=== PATIENT | male | born 1935 | race Caucasian/White ===

== ENCOUNTER → 2019-04-03 13:00 | Outpatient (CLI) | payer MEDICARE, MEDICAID, SELFPAY ==
--- NOTE | 2019-04-03 13:10 | XR_ITS ---
PROCEDURE: XR KNEE LT 3V CLINICAL INDICATION: distal fibula fx Pain COMPARISON: XR ANKLE LT MIN 3V from 02/09/2019 FINDINGS: No fracture or dislocation. No lytic or blastic change. There is normal mineralization. Moderate osteoarthritic changes are present at the medial compartment and patellofemoral joint with mild osteoarthritis of the lateral compartment. There is generalized vascular calcification. IMPRESSION: Osteoarthritis Dictated by: Dom Montelongo MD 04/03/2019 14:20 Electronically signed by Dom Montelongo MD in [place] 04/03/2019 14:20
--- NOTE | 2019-04-03 15:07 | XR_ITS ---
PROCEDURE: XR ANKLE LT MIN 3V CLINICAL INDICATION: Ankle Fx Pain and swelling following injury COMPARISON: No exams were available for comparison FINDINGS: No acute fracture or dislocation is evident. Hyperostosis is present involving the medial aspect of the distal tibia at the tibial fibular syndesmosis area. The ankle mortise is well preserved. Talar dome has an unremarkable appearance. IMPRESSION: Degenerative changes, no acute finding Dictated by: Dom Montelongo MD 04/03/2019 15:49 Electronically signed by Dom Montelongo MD in [place] 04/03/2019 15:49
--- NOTE | 2019-04-03 15:07 | XR_ITS ---
PROCEDURE: XR COCCYX 2V CLINICAL INDICATION: tailbone/ leg pain Posttraumatic pain COMPARISON: No exams were available for comparison FINDINGS: There is diffuse osteopenia. No coccyx or sacral fracture is apparent. There are mild osteoarthritic changes of the SI joints. There is mild dorsal angulation of the tip of the coccyx but no definite fracture. This could be developmental. No op set is evident. There is mild wedging of the superior endplate of L5 and L4 age indeterminate. IMPRESSION: 1. No definite sacral or coccyx fracture. 2. Mild wedging of the superior endplate of L4 and L5 age indeterminate. This may be better evaluated with MRI if clinically warranted Dictated by: Dom Montelongo MD 04/03/2019 15:48 Electronically signed by Dom Montelongo MD in [place] 04/03/2019 15:48
== END ==
PROVIDERS: PCP Emergency Medicine; Visit Provider Orthopaedic Surgery
DX: M19.072 Primary osteoarthritis, left ankle and foot; M53.3 Sacrococcygeal disorders, not elsewhere classified; M25.562 Pain in left knee
CPT/HCPCS: 72220; 73562; 73610

== ENCOUNTER → 2019-06-19 08:44 | Outpatient (CLI) | payer MEDICARE, MEDICAID, SELFPAY ==
--- NOTE | 2019-06-19 08:49 | CA_ITS ---
APPROVED REPORT EXAM: Comprehensive 2D, Doppler, and color-flow Echocardiogram Occup Therapist: Devi Aleman RT(R) Ht: 5 ft 11 in Wt: 202lbs BSA: 2.12 BP: 180/89 mmHg Indications: Aortic stenosis, murmur, SOB 2D Dimensions LVOT 1.84 cm (M/F) 1.5-2.5 M-Mode Dimensions RVDd 2.35 cm (0.9-2.6) LVDd 5.02 cm (3.5-5.7) LVDs 3.13 cm (3.5-5.7) IVSd 1.25 cm (0.6-1.1) PWd 1.03 cm (0.6-1.1) EF (Teich) 67.50% FS 37.60% EDV (Teich) 119.30 mL ESV (Teich) 38.80 mL LV Diastology E/A Ratio 0.81 Aortic Valve LVOT Max 177.00 (70-110 cm/s) LVOT VTI 46.36 cm Mitral Valve MV A Velocity 93.00 (40-130 cm/s) Left Ventricle Left atrium is mildly enlarged, left ventricle is normal size, mild concentric left ventricular hypertrophy, visually estimated ejection fraction of 55% with no regional wall motion abnormality, grade 1 diastolic dysfunction seen without tissue Doppler evidence of raise left atrial pressure. Right Ventricle Right atrium and right ventricular normal size and contractility. Aortic Valve Aortic valve is thickened and calcified, morphologically there is severe reduction in aortic valve leaflet mobility. There is no aortic insufficiency, the Doppler velocities are inadequate for calculation of the aortic valve area, a transesophageal echocardiogram is recommended for evaluation of the aortic valve disease and severity of aortic stenosis. Mitral Valve Mitral valve is minimally thickened, there is mild mitral calcification present, there is no mitral stenosis, there is mild mitral regurgitation. Tricuspid Valve Tricuspid valve is grossly normal, there is mild tricuspid regurgitation. Tricuspid regurgitation jet velocity is inadequate for calculation of the right ventricular systolic pressure. Pulmonic Valve Pulmonic valve is poorly visualized. Great Vessels Aortic root is normal size. Pericardium No significant pericardial effusion noted. Conclusion 1. Mildly enlarged left atrium, normal left ventricular size, mild concentric left ventricular hypertrophy, visually estimated ejection fraction 55% with no regional wall motion abnormality, grade 1 diastolic dysfunction seen without tissue Doppler evidence of raise left atrial pressure. 2. Thickened and calcified aortic valve morphologically there is moderate to severe aortic stenosis, however Doppler velocities are not adequately recorded, a transesophageal echocardiogram is recommended to assess the aortic valve disease and severity of the aortic stenosis. 3. Mild mitral and tricuspid regurgitation. 4. No significant pericardial effusion noted. Electronically signed by : Henry Rodriguez, 06/19/2019 13:14:09
== END ==
PROVIDERS: PCP Emergency Medicine; Visit Provider Emergency Medicine
DX: I35.0 Nonrheumatic aortic (valve) stenosis (principal)
CPT/HCPCS: 93306

== ENCOUNTER 2019-08-15 19:55 | Emergency (ER) | payer MEDICARE, MEDICAID, SELFPAY ==
[2019-08-15 19:56] VITALS: BP 124/89; PULSE 76; RESP 16; TEMP 36.8; O2SAT 97; BMI 22.4
[2019-08-15 19:58] VITALS: BMI 22.4
--- NOTE | 2019-08-15 19:59 | XR_ITS ---
PROCEDURE: XR WRIST LT MIN 3V CLINICAL INDICATION: fall Posttraumatic pain COMPARISON: XR WRIST RT 2V from 04/26/2019 FINDINGS: Mild osteoarthritic changes are present at the scapho trapezium and 1st metacarpal-carpal joint. There is a well-circumscribed calcific density at the radial styloid and may be due to an old fracture or ununited ossification center. No acute fracture or dislocation. IMPRESSION: Chronic degenerative changes, no acute finding Dictated by: Dom Montelongo MD 08/15/2019 22:27 Electronically signed by Dom Montelongo MD in [place] 08/15/2019 22:27
--- NOTE | 2019-08-15 19:59 | XR_ITS ---
PROCEDURE: XR KNEE RT 3V CLINICAL INDICATION: fall Posttraumatic pain COMPARISON: XR KNEE LT 3V from 04/03/2019 XR KNEE RT 2V from 04/26/2019 FINDINGS: Prior total knee arthroplasty with good alignment. No fracture or dislocation. Incidental vascular calcification Other findings:None. IMPRESSION: No acute findings. Dictated by: Dom Montelongo MD 08/15/2019 22:29 Electronically signed by Dom Montelongo MD in [place] 08/15/2019 22:29
--- NOTE | 2019-08-15 19:59 | CT_ITS ---
PROCEDURE: CT HEAD/BRAIN WO CON CLINICAL INDICATION: fall Head injury with headache/pain, contusion, abrasion or hematoma, laceration COMPARISON: CT HEAD/BRAIN WO CON from 04/26/2019 CT CERVICAL SPINE WO CON from 08/15/2019 TECHNIQUE: Axial images obtained. All CT scans at the facility use one or more dose reduction, viz: automated exposure control, ma/kV adjustment per patient size (including targeted exams where dose is matched to indication, i.e. head), or iterative reconstruction technique. FINDINGS: This exam is very limited due to patient positioning. Technologist notes that the patient was unable to be properly position due to severe kyphosis. The anterior 1/3 of the brain is not included on the exam. Visualized temporal and parietal lobes show no acute finding with grossly unremarkable posterior fossa. No acute hemorrhage evident on the images submitted. IMPRESSION: Very limited exam. No acute findings apparent on the images submitted Dictated by: Dom Montelongo MD 08/16/2019 08:26 Electronically signed by Dom Montelongo MD in [place] 08/16/2019 08:26
--- NOTE | 2019-08-15 19:59 | XR_ITS ---
PROCEDURE: XR PELVIS 1-2V CLINICAL INDICATION: fall Posttraumatic pain COMPARISON: XR PELVIS 1-2V from 04/26/2019 TECHNIQUE: XR Pelvis AP View FINDINGS: No fracture or dislocation is evident. Mild osteoarthritic changes are present No lytic or blastic change. IMPRESSION: No acute findings. Dictated by: Dom Montelongo MD 08/15/2019 22:26 Electronically signed by Dom Montelongo MD in [place] 08/15/2019 22:26
--- NOTE | 2019-08-15 19:59 | XR_ITS ---
PROCEDURE: XR CHEST PORTABLE CLINICAL HISTORY: fall Posttraumatic pain COMPARISON: XR CHEST PORTABLE from 04/26/2019 FINDINGS: Exam is very limited with the patient's chin obscuring the upper chest. Cannot exclude pathology in the upper chest and mediastinum. The heart size is normal. There are chronic interstitial changes. Degenerative changes are present in the shoulders IMPRESSION: Limited exam with chronic changes in the lung bases Dictated by: Dom Montelongo MD 08/15/2019 22:30 Electronically signed by Dom Montelongo MD in [place] 08/15/2019 22:30
--- NOTE | 2019-08-15 19:59 | CT_ITS ---
PROCEDURE: CT CERVICAL SPINE WO CON CLINICAL INDICATION: fall Neck injury with pain, contusion/abrasion or hematoma, cervical sprain/strain COMPARISON: CT CERVICAL SPINE WO CON from 04/26/2019 TECHNIQUE: Axial images obtained with sagittal and coronal reformats. All CT scans at the facility use one or more dose reduction, viz: automated exposure control, ma/kV adjustment per patient size (including targeted exams where dose is matched to indication, i.e. head), or iterative reconstruction technique. Axial spiral CT scanning performed of the cervical spine beginning at the base of the skull and continuing to the upper T-spine. 3-D multiplanar reconstruction with 3-D manipulation of volumetric data set in image rendering was completed by the radiologist and/or technologist with the supervision of the radiologist on independent workstation. FINDINGS: This exam is very limited secondary to patient's inability to be properly position due to severe kyphosis. There is severe multilevel cervical spondylosis with multilevel degenerative disc disease along with facet and uncovertebral hypertrophy. No obvious fracture or dislocation is evident. There is severe thoracic kyphosis. There is generalized osteopenia. IMPRESSION: Very limited exam with no definite fracture. Diffuse cervical spondylosis Dictated by: Dom Montelongo MD 08/16/2019 08:28 Electronically signed by Dom Montelongo MD in [place] 08/16/2019 08:28
--- NOTE | 2019-08-15 20:03 | ECG_ITS ---
APPROVED REPORT Exam: Resting ECG HR:56 bpm ECG Measurements Heart Rate 56 AXES NJ 244 P 85 QRSd 96 QRS -8 QT 432 T 57 QTc 416 <Conclusion> Sinus bradycardia with 1st degree AV block Minimal voltage criteria for LVH, may be normal variant Borderline ECG Electronically signed by : Edd Mckeon, 08/16/2019 06:12:07
--- NOTE | 2019-08-15 20:08 | PC.NURSE ---
to ct at this time via stretcher
[2019-08-15 20:55] VITALS: BP 158/82; PULSE 59; RESP 18; O2SAT 98
[2019-08-15 21:04] LABS: Basophils # 0.1 K/mm3 (0-0.2); Basophils % 0.6 % (0.1-2.0); Eosinophils # 0.3 K/mm3 (0.0-0.4); Eosinophils % 4.3 % (0.1-12.0); Hematocrit 42.2 % (42.0-52.0); Hemoglobin 14.3 g/dL (14.1-18.0); Lymphocytes # 2.2 K/mm3 (0.7-4.5); Lymphocytes % 29.6 % (10-50); Mean Corpuscular HGB Conc 33.9 g/dL (31.8-35.4); Mean Corpuscular Hemoglobin 32.9 pg (27.0-31.2); Mean Corpuscular Volume 97.1 fl (80-94); Mean Platelet Volume 7.8 fl (7.4-10.4); Monocytes # 0.5 K/mm3 (0.1-1.0); Monocytes % 6.7 % (1.7-9.3); Neutrophils # 4.4 K/mm3 (1.8-7.8); Neutrophils % 58.8 % (37.0-80.0); Platelet Count 211 K/mm3 (142-424); Red Blood Count 4.34 M/mm3 (4.60-6.20); Red Cell Distribution Width 12.9 % (11.5-17.5); White Blood Count 7.4 K/mm3 (4.8-10.8)
[2019-08-15 21:09] LABS: Chloride 100 mmol/L (98-107); Potassium 4.5 mmoL/L (3.5-5.1); Sodium 138 mmol/L (136-145)
[2019-08-15 21:11] LABS: Alanine Aminotransferase 13 U/L (12-78); Aspartate Amino Transferase 24 U/L (17-59); Bilirubin,Total 0.5 mg/dl (0.2-1.3); Blood Urea Nitrogen 21 mg/dl (9-20); Creatinine Clearance Estimated 60 mL/min (50-200); Estimated Glomerular Filt Rate 81 ml/min (>60); GFR (African American) 98 ML/MIN (>60)
[2019-08-15 21:12] LABS: Albumin Level 4.2 g/dl (3.5-5.0); Albumin/Globulin Ratio 1.2 (1.1-1.8); Alkaline Phosphatase 88 U/L (38-126); Anion Gap 10.5 mEq/L (5-15); Calcium 9.2 mg/dl (8.4-10.2); Carbon Dioxide 32 mmol/L (22.0-30.0); Globulin 3.6 g/dL (1.3-3.2); Glucose 93 mg/dl (74-100); Total Protein,Serum 7.8 g/dl (6.3-8.2)
[2019-08-15 21:18] VITALS: BP 158/81; PULSE 51; RESP 20; O2SAT 97
[2019-08-15 21:24] LABS: Troponin I 0.11 ng/ml (0.00-0.034)
--- NOTE | 2019-08-15 21:25 | HMH.EDFALL ---
ED Disposition Clinical Impression: Bradycardia Head contusion Qualifiers: Encounter type: initial encounter Contusion of head detail: scalp Qualified Code(s): S00.03XA - Contusion of scalp, initial encounter Acute cervical sprain Qualifiers: Encounter type: initial encounter Qualified Code(s): S13.9XXA - Sprain of joints and ligaments of unspecified parts of neck, initial encounter Scalp laceration Qualifiers: Encounter type: initial encounter Qualified Code(s): S01.01XA - Laceration without foreign body of scalp, initial encounter Left wrist sprain Qualifiers: Encounter type: initial encounter Qualified Code(s): S63.502A - Unspecified sprain of left wrist, initial encounter Disposition: Home, Self-Care Condition on Discharge: Good Instructions: DI for Laceration Repair -- [facility] Additional Instructions: resume orders at [facility] Referrals: Ye Emanuel MD [Primary Care Provider] - - Critical Care Critical Care Time: No Attestation: On 08/15/19, the high probability of a clinically significant, sudden or life threatening deterioration of the following system(s) required my full and direct attention, intervention and personal management. The time I documented below is in addition to time spent performing reported procedures but includes the following listed in this critical care notation. Medical Decision Making - Medical Records Medical records reviewed: Yes: I reviewed the patient's medical records. - Rafa Inquiry Pt receiving controlled substance: No Vital Signs: 08/15/19 19:56 08/15/19 20:55 08/15/19 21:18 Temperature 98.3 F Temperature Source Oral Pulse Rate [Right Brachial] 76 59 L 51 L Respiratory Rate 16 18 20 Blood Pressure [Right Arm] 124/89 158/82 H 158/81 H Blood Pressure Mean [Right Arm] 100 107 106 Blood Pressure Source [Right Arm] Automatic Cuff Blood Pressure Position [Right Arm] Sitting 02 Sat by Pulse Oximetry 97 98 97 Oxygen Delivery Method Room Air Room Air Room Air - Lab Data Lab results reviewed: Yes: I reviewed the patient's lab results. Lab Results 08/15/19 20:53: WBC 7.4, RBC 4.34 L, Hgb 14.3, Hct 42.2, MCV 97.1 H, MCH 32.9 H, MCHC 33.9, RDW 12.9, Plt Count 211, MPV 7.8, Neut % (Auto) 58.8, Lymph % (Auto) 29.6, [place] % (Auto) 6.7, Eos % (Auto) 4.3, Baso % (Auto) 0.6, Neut # (Auto) 4.4, Lymph # (Auto) 2.2, [place] # (Auto) 0.5, Eos # (Auto) 0.3, Baso # (Auto) 0.1 08/15/19 20:53: Sodium 138, Potassium 4.5, Chloride 100, Carbon Dioxide 32 H, Anion Gap 10.5, BUN 21 H, Creatinine 0.90, Estimated Creat Clear 60, Estimated GFR 81, Est GFR ( Amer) 98, Glucose 93, Calcium 9.2, Total Bilirubin 0.5, AST 24, ALT 13, Alkaline Phosphatase 88, Total Protein 7.8, Albumin 4.2, Globulin 3.6 H, Albumin/Globulin Ratio 1.2 Result diagrams: 08/15/19 20:53 08/15/19 20:53 Orders (Tests/Meds): ORDERS Category Date Time Status CT cervical spine wo con Stat Cat Scan 08/15/19 19:[address] head/brain wo con Stat Cat Scan 08/15/19 19:59 Taken XR chest portable Stat Exams 08/15/19 19:59 Taken XR knee RT 3V Stat Exams 08/15/19 19:59 Taken XR pelvis 1-2V Stat Exams 08/15/19 19:59 Taken XR wrist LT min 3V Stat Exams 08/15/19 19:59 Taken Comprehensive Metabolic Panel Stat Lab 08/15/19 20:53 Results Troponin I Q3H Lab 08/15/19 23:15 Ordered Troponin I Q3H Lab 08/16/19 02:15 Ordered Troponin I Stat Lab 08/15/19 20:53 Results EKG Request [ECG Request by /Bobby] Stat Y 08/15/19 20:03 Ordered - Radiology Data #1 Image(s): Chest, Wrist, Pelvis, Knee Image Reviewed: Yes I reviewed the patient's radiology image Preliminary Findings: No Fracture Seen - CT Data CT Scan: Head, C-Spine Time Received: 21:[address] Reviewed: Yes: I have viewed the radiologist's interpretation Preliminary Findings: No Fracture Seen - ECG Data Tracing #1 Arrhythmias present: sinus sae Ischemic changes: non-specific ST-T wave changes Conduction abnormalit
[2019-08-15 21:56] VITALS: BP 161/89; PULSE 61; RESP 18; O2SAT 94
[2019-08-15 22:14] VITALS: BP 138/88; PULSE 89; RESP 16; TEMP 36.7; O2SAT 98
== END 2019-08-15 22:14 | disposition home or self-care (01) ==
PROVIDERS: Emergency Provider Emergency Medicine; PCP Emergency Medicine
DX: S01.01XA Laceration without foreign body of scalp, initial encounter (principal); S13.9XXA Sprain of joints and ligaments of unspecified parts of neck, initial encounter; S63.502A Unspecified sprain of left wrist, initial encounter; W01.198A Fall on same level from slipping, tripping and stumbling with subsequent striking against other object, initial encounter; Y92.129 Unspecified place in nursing home as the place of occurrence of the external cause; I25.10 Atherosclerotic heart disease of native coronary artery without angina pectoris; F03.90 Unspecified dementia, unspecified severity, without behavioral disturbance, psychotic disturbance, mood disturbance, and anxiety; Z79.899 Other long term (current) drug therapy; Z88.2 Allergy status to sulfonamides; Z90.49 Acquired absence of other specified parts of digestive tract
CPT/HCPCS: 70450; 71045; 72125; 72170; 73110; 73562; 80053; 84484; 85025; 93005; 99283

== ENCOUNTER 2019-08-21 11:15 | Observation (INO) | payer MEDICARE, MEDICAID, SELFPAY ==
[2019-08-21] VITALS (11 sets, daily range): BP systolic 150–169; BP diastolic 68–93; PULSE 50–83; RESP 18–20; TEMP 36.7–37.3; O2SAT 97–100; BMI 32.8; BMI 26.9
--- NOTE | 2019-08-21 | ECG_ITS ---
APPROVED REPORT Exam: Resting ECG HR:51 bpm ECG Measurements Heart Rate 51 AXES QRSd 104 QRS -25 QT 436 T 114 QTc 401 <Conclusion> Undetermined rhythm Left ventricular hypertrophy with repolarization abnormality Abnormal ECG Electronically signed by : Edd Mckeon, 08/23/2019 17:10:08
--- NOTE | 2019-08-21 11:07 | XR_ITS ---
PROCEDURE: XR CHEST PORTABLE CLINICAL HISTORY: CP The COMPARISON: XR CHEST PORTABLE from 04/26/2019 XR CHEST PORTABLE from 08/15/2019 FINDINGS: There is mild cardiomegaly without failure. Increased density is present in lung base consistent with atelectasis or infiltrate. There are old left-sided rib fractures. IMPRESSION: Cardiomegaly with right basilar atelectasis or infiltrate Dictated by: Dom Montelongo MD 08/21/2019 11:36 Electronically signed by Dom Montelongo MD in [place] 08/21/2019 11:36
--- NOTE | 2019-08-21 11:10 | PC.NURSE ---
Rad at bedside
--- NOTE | 2019-08-21 11:26 | HMH.EDGENADL ---
ED Disposition Clinical Impression: Chronic pain of both feet, Elevated troponin, Atelectasis of right lung Chest pain Qualifiers: Chest pain type: unspecified Qualified Code(s): R07.9 - Chest pain, unspecified Disposition: Admitted as Observation Condition on Discharge: Good - Critical Care Critical Care Time: No Attestation: On 08/21/19, the high probability of a clinically significant, sudden or life threatening deterioration of the following system(s) required my full and direct attention, intervention and personal management. The time I documented below is in addition to time spent performing reported procedures but includes the following listed in this critical care notation. Medical Decision Making - Medical Records Medical records reviewed: Yes: I reviewed the patient's medical records. - Rafa Inquiry Pt receiving controlled substance: No Vital Signs: 08/21/19 11:05 08/21/19 11:24 08/21/19 12:10 Temperature 98.1 F Temperature Source Oral Pulse Rate [Radial] 50 L 67 58 L Respiratory Rate 18 Blood Pressure [Right Arm] 156/78 H 156/78 H 152/68 H Blood Pressure Mean [Right Arm] 104 104 96 Blood Pressure Source [Right Arm] Automatic Cuff Automatic Cuff Automatic Cuff Blood Pressure Position [Right Arm] Sitting Sitting Sitting 02 Sat by Pulse Oximetry 100 99 98 Oxygen Delivery Method Room Air 08/21/19 13:08 08/21/19 15:01 Temperature Temperature Source Pulse Rate [Radial] 60 52 L Respiratory Rate Blood Pressure [Right Arm] 156/87 H 169/93 H Blood Pressure Mean [Right Arm] 110 118 Blood Pressure Source [Right Arm] Automatic Cuff Automatic Cuff Blood Pressure Position [Right Arm] Sitting Sitting 02 Sat by Pulse Oximetry 97 97 Oxygen Delivery Method - Lab Data Lab results reviewed: Yes: I reviewed the patient's lab results. Lab Results 08/21/19 11:28: WBC 7.7, RBC 4.08 L, Hgb 13.5 L, Hct 38.6 L, MCV 94.6 H, MCH 33.1 H, MCHC 35.0, RDW 12.9, Plt Count 196, MPV 7.9, Neut % (Auto) 63.9, Lymph % (Auto) 24.2, [place] % (Auto) 7.5, Eos % (Auto) 3.9, Baso % (Auto) 0.6, Neut # (Auto) 4.9, Lymph # (Auto) 1.9, [place] # (Auto) 0.6, Eos # (Auto) 0.3, Baso # (Auto) 0.0 08/21/19 11:28: Sodium 137, Potassium 4.6, Chloride 102, Carbon Dioxide 32 H, Anion Gap 7.6, BUN 21 H, Creatinine 0.80, Estimated Creat Clear 76, Estimated GFR 93, Est GFR ( Amer) 112, Glucose 122 H, Calcium 9.1, Troponin I 0.10 H 08/21/19 12:24: Urine Color Yellow, Urine Appearance Clear, Urine pH 5.5, Ur Specific [place] 1.020, Urine Protein Negative, Urine Glucose (UA) Negative, Urine Ketones Negative, Urine Blood Negative, Urine Nitrate Negative, Urine Bilirubin Negative, Urine Urobilinogen 0.2, Ur Leukocyte Esterase Negative, Urine RBC 5-10, Urine WBC Occasional, Ur Squamous Epith Cells Occasional, Urine Bacteria None Result diagrams: 08/21/19 11:28 08/21/19 11:28 Orders (Tests/Meds): ORDERS Category Date Time Status Cardiology Consult [Consult to Cardiology] [CONS] Cons 08/21/19 14:06 Active Routine Rapid Coronavirus-19 IgG/IgM Stat Lab 08/21/19 15:15 Received Respiratory Panel (COVID), PCR Stat Lab 08/21/19 15:15 Received Troponin I Q3H Lab 08/21/19 15:15 Received Troponin I Q3H Lab 08/21/19 17:15 Ordered - Radiology Data #1 Image(s): Chest Image Reviewed: Yes I reviewed the patient's radiology image, Yes I have reviewed radiologist's interpretation PROCEDURE: XR CHEST PORTABLE CLINICAL HISTORY: CP The COMPARISON: XR CHEST PORTABLE from 04/26/2019 XR CHEST PORTABLE from 08/15/2019 FINDINGS: There is mild cardiomegaly without failure. Increased density is present in lung base consistent with atelectasis or infiltrate. There are old left-sided rib fractures. IMPRESSION: Cardiomegaly with right basilar atelectasis or infiltrate Dictated by: Dom Montelongo MD 08/21/2019 11:36 Electronically signed by Dom Montelongo MD in [place] 08/21/2019 11:36 - ECG Data Tracing #
[2019-08-21 11:41] LABS: Basophils % 0.6 % (0.1-2.0); Eosinophils # 0.3 K/mm3 (0.0-0.4); Eosinophils % 3.9 % (0.1-12.0); Hematocrit 38.6 % (42.0-52.0); Hemoglobin 13.5 g/dL (14.1-18.0); Lymphocytes # 1.9 K/mm3 (0.7-4.5); Lymphocytes % 24.2 % (10-50); Mean Corpuscular Hemoglobin 33.1 pg (27.0-31.2); Mean Corpuscular Volume 94.6 fl (80-94); Mean Platelet Volume 7.9 fl (7.4-10.4); Monocytes # 0.6 K/mm3 (0.1-1.0); Monocytes % 7.5 % (1.7-9.3); Neutrophils # 4.9 K/mm3 (1.8-7.8); Neutrophils % 63.9 % (37.0-80.0); Platelet Count 196 K/mm3 (142-424); Red Blood Count 4.08 M/mm3 (4.60-6.20); Red Cell Distribution Width 12.9 % (11.5-17.5); White Blood Count 7.7 K/mm3 (4.8-10.8)
[2019-08-21 11:43] LABS: Chloride 102 mmol/L (98-107); Potassium 4.6 mmoL/L (3.5-5.1); Sodium 137 mmol/L (136-145)
[2019-08-21 11:46] LABS: Anion Gap 7.6 mEq/L (5-15); Blood Urea Nitrogen 21 mg/dl (9-20); Calcium 9.1 mg/dl (8.4-10.2); Carbon Dioxide 32 mmol/L (22.0-30.0); Creatinine Clearance Estimated 76 mL/min (50-200); Estimated Glomerular Filt Rate 93 ml/min (>60); GFR (African American) 112 ML/MIN (>60); Glucose 122 mg/dl (74-100)
[2019-08-21 12:38] LABS: Microscopic, Urine URINE MICROSCOPIC (MICROSCOPIC)
--- NOTE | 2019-08-21 12:42 | PC.NURSE ---
despite having call hathaway pt keeps yelling out for various things. Pt is using a urinal at this time.
[2019-08-21 12:45] LABS: Appearance,Urine CLEAR (Clear); Bilirubin,Urine Negative (Negative); Blood, Urine Negative (Negative); Color,Urine YELLOW (Yellow); Glucose,Urine (UA) Negative (Negative); Ketones,Urine Negative (Negative); Leukocyte Esterase,Urine Negative (Negative); Nitrate,Urine Negative (Negative); PH,Urine 5.5 (5.0-8.5); Protein,Urine Negative (Negative); Urobilinogen,Urine 0.2 EU/dl (0.2)
[2019-08-21 13:10] LABS: Squamous Epithelial Cell,Urine Occasional #/hpf (0-5); WBC,Urine Occasional #/hpf (0-3)
--- NOTE | 2019-08-21 13:53 | PC.NURSE ---
speaking with Dr. Emanuel at this time.
--- NOTE | 2019-08-21 14:00 | PC.NURSE ---
cardiology called to see pt
--- NOTE | 2019-08-21 14:30 | PC.NURSE ---
CV lab at bedside
--- NOTE | 2019-08-21 14:34 | PC.NURSE ---
admission delayed due to covid swab.
--- NOTE | 2019-08-21 14:40 | PC.NURSE ---
Dr Saba and Oracio Bravo speaking with pt's daughter at this time.
--- NOTE | 2019-08-21 15:10 | PC.NURSE ---
Lab at bedside
[2019-08-21 15:27] LABS: Adenovirus,PCR Not Detected (NotDetected); Bordetella Pertussis Not Detected (NotDetected); Chlamydophila Pneumoniae, PCR Not Detected (NotDetected); Coronavirus 19, PCR Not Detected (NotDetected); Coronavirus 229E Not Detected (NotDetected); Coronavirus NL63 Not Detected (NotDetected); Coronavirus OC43 Not Detected (NotDetected); Coronovirus HKU1,PCR Not Detected (NotDetected); Human Metapneumovirus Not Detected (NotDetected); Influenza A, PCR Not Detected (NotDetected); Influenza AH1, 2009 Not Detected (NotDetected); Influenza AH1, PCR Not Detected (NotDetected); Influenza AH3,PCR Not Detected (NotDetected); Influenza B, PCR Not Detected (NotDetected); Mycoplasma Pneumoniae, PCR Not Detected (NotDected); Parainfluenza 1, PCR Not Detected (NotDetected); Parainfluenza 2, PCR Not Detected (NotDetected); Parainfluenza 3, PCR Not Detected (NotDetected); Parainfluenza 4, PCR Not Detected (NotDetected); Respiratory Syncytial Virus Not Detected (NotDetected); Rhinovirus/Enterovirus Not Detected (NotDetected)
--- NOTE | 2019-08-21 15:28 | PC.NURSE ---
Report given to GIL Dickinson.
--- NOTE | 2019-08-21 15:43 | PC.NURSE ---
Report recieved from Mei Manning RN
[2019-08-21 16:36] LABS: Coronavirus 19 IgG Antibody Negative (Negative); Coronavirus 19 IgM Antibody Negative (Negative)
--- NOTE | 2019-08-21 17:10 | PC.NURSE ---
Pt arrived to the floor per stretcher staff x2
--- NOTE | 2019-08-21 17:19 | PC.NURSE ---
Lab at the bedside
--- NOTE | 2019-08-21 18:27 | HMH.HP ---
*Admission Date: 08/21/19 *Chief complaint: chest pain *History of present illness: 84 yr old male from [place] sent to ED with c/o chest pain. While at shelter pt states he has a sharp pain in the left chest that started last pm but went away and started back up this am. Pt was sent to ed via ambulance for eval. from Pt admitted for cardiac work up and cardiology consult. EKG today is sinus bradycardia with first degree AV block. No acute ST segment changes. Pt with Known cardiac history. [facility] History I have reviewed the patient's past medical history: Yes Medical History: Reports:: Congestive Heart Failure, Coronary Artery Disease, Dementia, Heart Murmur, Peripheral Vascular Disease, Renal Disease, Renal Insufficiency, Seizures Denies:: Diabetes Mellitus Type 1, Diabetes Mellitus Type 2 *Have you ever received a pneumonia vaccine?: Yes *Have you received a flu vaccine this season?: Yes Other Surgeries: Yes: Cholecystectomy, Other - *Social History Educational Level: Completed Graduate School Smoking Status: Never smoker Alcohol Intake: never Substance Use Type: denies use *Occupational Status:: retired Housing: shelter Household Members: other *Travel in the last 8 weeks: None Family Hx:: Unable to obtain Review of Systems - Review of Systems Review of systems:: pertinent systems reviewed and negative unless documented below - Constitutional Denies excessive sweating - Eyes Denies floaters - ENT Denies bleeding gums, Denies sore throat - *Cardiovascular Reports chest pain, Reports chest pain at rest, Reports leg pain with activity, Denies leg swelling - *Respiratory Denies chest congestion - *Gastrointestinal Denies nausea, Denies vomiting - *Genitourinary Denies urinary urgency - *Musculoskeletal Denies muscle weakness - Integumentary/Breasts Denies rash - *Neurologic Denies dizziness - Psychiatric Denies anxiety - Hematologic/Lymphatic Denies enlarged lymph nodes - Allergic/Immunologic Denies itchy eyes Meds Home Medications Medication Instructions Recorded Confirmed Type lamotrigine 200 mg tablet 200 mg PO BID 04/03/19 08/21/19 History lamotrigine 25 mg tablet 25 mg PO BID 04/03/19 08/21/19 History gabapentin 800 mg tablet 1,600 mg PO TID tab 06/28/19 08/22/19 History lutein 10 mg tablet 10 mg PO DAILY 06/28/19 08/21/19 History pramipexole 0.125 mg tablet 0.125 mg PO HS 06/28/19 08/22/19 History Furosemide [Furosemide 20mg Tab] 20 mg PO DAILY 08/21/19 08/21/19 History Acetaminophen [Acetaminophen Extra 500 mg PO Q6HP PRN 08/22/19 08/22/19 History Strength] Cyclobenzaprine HCl 10 mg PO BIDP PRN 08/22/19 08/22/19 History [Cyclobenzaprine 10mg Tab] Docusate Sodium [Colace 250mg 250 mg PO BID 08/22/19 08/22/19 History capsule] Ibuprofen [Motrin 600mg 600 mg PO Q8HP PRN 08/22/19 08/22/19 History Tablet] Tramadol HCl [Tramadol 50mg 50 mg PO HS 08/22/19 08/22/19 History Tab] diphenhydrAMINE HCl 25 mg PO Q6HP PRN 08/22/19 08/22/19 History [Diphenhydramine HCl] Allergies Allergy/AdvReac Type Severity Reaction Status Date / Time amitriptyline Allergy Verified 08/21/19 15:27 duloxetine [From Cymbalta] Allergy Verified 08/21/19 15:27 latex Allergy Verified 08/21/19 15:27 Sulfa (Sulfonamide Allergy Verified 07/25/19 15:15 Antibiotics) Exam Vital signs and Labs for Last 24 Hours: Temp Pulse Resp BP Pulse Ox 98.3 F 52 L 18 169/93 H 97 08/21/19 17:08 08/21/19 17:08 08/21/19 17:08 08/21/19 17:08 08/21/19 15:03 Laboratory Results - last 24 hr 08/21/19 11:28: WBC 7.7, RBC 4.08 L, Hgb 13.5 L, Hct 38.6 L, MCV 94.6 H, MCH 33.1 H, MCHC 35.0, RDW 12.9, Plt Count 196, MPV 7.9, Neut % (Auto) 63.9, Lymph % (Auto) 24.2, [place] % (Auto) 7.5, Eos % (Auto) 3.9, Baso % (Auto) 0.6, Neut # (Auto) 4.9, Lymph # (Auto) 1.9, [place] # (Auto) 0.6, Eos # (Auto) 0.3, Baso # (Auto) 0.0 08/21/19 11:28: Sodium 137, Potassium 4.6, Chloride 1
--- NOTE | 2019-08-21 19:12 | PC.NURSE ---
report given to flory
--- NOTE | 2019-08-21 22:18 | HMH.CNCARD ---
History of Present Illness Consult date: 08/21/19 Requesting physician: Ye Emanuel Consult reason: chest pain Chief complaint: foot pain, chest pain Additional Medical History:: 1. Alzheimer's 2. Epilepsy 3. FH of CAD 4. H/o SC about 20-25 yrs ago per daughter without intervention or follow up. History of present illness: 84 yo WM from [facility] with complaints of leg pain and CP. Poor historian with reported history of epilepsy and dementia. Unable to give details of chest pain. Recently in ER for history of fall with incidental note of asymptomatic, mild elevated troponin. No further work up pursued at that time. EKG today is sinus bradycardia with first degree AV block. No acute ST segment changes. Cardiology consulted for evaluation. One of his daughter's is present. [facility] History Medical History: Reports:: Congestive Heart Failure, Coronary Artery Disease, Dementia, Heart Murmur, Peripheral Vascular Disease, Renal Disease, Renal Insufficiency, Seizures Denies:: Diabetes Mellitus Type 1, Diabetes Mellitus Type 2 *Have you ever received a pneumonia vaccine?: Yes *Have you received a flu vaccine this season?: Yes Other Surgeries: Yes: Cholecystectomy, Other - *Social History Educational Level: Completed Graduate School Smoking Status: Never smoker Alcohol Intake: never Substance Use Type: denies use *Occupational Status:: retired Housing: retirement Household Members: other *Travel in the last 8 weeks: None Family Hx:: Unable to obtain [facility] Home Medications Medication Instructions Recorded Confirmed Type lamotrigine 200 mg tablet 200 mg PO BID 04/03/19 08/21/19 History lamotrigine 25 mg tablet 25 mg PO BID 04/03/19 08/21/19 History docusate sodium 100 mg capsule 250 mg PO DAILY PRN cap 06/28/19 08/21/19 History gabapentin 800 mg tablet 800 mg PO TID tab 06/28/19 08/21/19 History lutein 10 mg tablet 10 mg PO DAILY 06/28/19 08/21/19 History pramipexole 0.125 mg tablet 0.125 mg PO DAILY 06/28/19 08/21/19 History tramadol 50 mg tablet 50 mg PO QHS #30 tab 07/25/19 08/21/19 Rx Furosemide [Furosemide 20mg Tab] 20 mg PO DAILY 08/21/19 08/21/19 History Allergies Allergy/AdvReac Type Severity Reaction Status Date / Time amitriptyline Allergy Verified 08/21/19 15:27 duloxetine [From Cymbalta] Allergy Verified 08/21/19 15:27 latex Allergy Verified 08/21/19 15:27 Sulfa (Sulfonamide Allergy Verified 07/25/19 15:15 Antibiotics) Review of Systems - Review of Systems Review of systems:: pertinent systems reviewed and negative unless documented below - *Cardiovascular Reports chest pain - *Musculoskeletal Reports muscle cramps - *Neurologic Reports radiating pain, Reports restless legs Exam Vital signs and Labs for Last 24 Hours: Temp Pulse Resp BP Pulse Ox 99.2 F 83 18 150/81 H 98 08/21/19 19:41 08/21/19 19:41 08/21/19 19:41 08/21/19 19:41 08/21/19 20:00 Laboratory Results - last 24 hr 08/21/19 11:28: WBC 7.7, RBC 4.08 L, Hgb 13.5 L, Hct 38.6 L, MCV 94.6 H, MCH 33.1 H, MCHC 35.0, RDW 12.9, Plt Count 196, MPV 7.9, Neut % (Auto) 63.9, Lymph % (Auto) 24.2, [place] % (Auto) 7.5, Eos % (Auto) 3.9, Baso % (Auto) 0.6, Neut # (Auto) 4.9, Lymph # (Auto) 1.9, [place] # (Auto) 0.6, Eos # (Auto) 0.3, Baso # (Auto) 0.0 08/21/19 11:28: Sodium 137, Potassium 4.6, Chloride 102, Carbon Dioxide 32 H, Anion Gap 7.6, BUN 21 H, Creatinine 0.80, Estimated Creat Clear 76, Estimated GFR 93, Est GFR ( Amer) 112, Glucose 122 H, Calcium 9.1, Troponin I 0.10 H 08/21/19 12:24: Urine Color Yellow, Urine Appearance Clear, Urine pH 5.5, Ur Specific [place] 1.020, Urine Protein Negative, Urine Glucose (UA) Negative, Urine Ketones Negative, Urine Blood Negative, Urine Nitrate Negative, Urine Bilirubin Negative, Urine Urobilinogen 0.2, Ur Leukocyte Esterase Negative, Urine RBC 5-10, Urine WBC Occasional, Ur Squamous Epith Cells Occasional, Urine Bacteria None 08/21/19 15:15: Troponin I 0.10 H 08/21/19 15:15:
[2019-08-22] VITALS (14 sets, daily range): BP systolic 129–146; BP diastolic 53–80; PULSE 40–72; RESP 14–20; TEMP 36.6–37.2; O2SAT 93–99; BMI 27.3
--- NOTE | 2019-08-22 02:06 | PC.NURSE ---
He is alert to person, birthday, place, and situation. Bed safety is set. He is voiding per the urinal. Urine is yellow, clear. He reported generalized pain but refused tylenol. He has been sitting in bed eating snickers that his daughter brought him. He denies dizziness and sOA. REports weakness. He states his last BM was 2-3 days ago. BLE are reddened and warm to touch. BLE also have dry, flaky skin. Continues in seizure precautions. Is currently on RA. 1st degree AV block on telemetry.
--- NOTE | 2019-08-22 07:24 | HMH.PHAVTE ---
[facility] Pharmacy VTE Monitoring - Patient Demographics Admission date: 08/21/19 Report Date: 08/22/19 Time: 07:24 Allergies/Adverse Reactions: Patient Allergies amitriptyline Allergy (Verified 08/21/19 15:27) duloxetine [From Cymbalta] Allergy (Verified 08/21/19 15:27) latex Allergy (Verified 08/21/19 15:27) Sulfa (Sulfonamide Antibiotics) Allergy (Verified 07/25/19 15:15) Height: 1.88 m Weight: 96.434 kg Patient Problems: Current Active Problems Chronic pain of both feet (Acute) Elevated troponin (Acute) Atelectasis of right lung (Acute) Chest pain (Acute) - VTE Risk Labs: VTE Related Lab Results Hgb 13.5 g/dL (14.1-18.0) L 08/21/19 11:28 Hct 38.6 % (42.0-52.0) L 08/21/19 11:28 Plt Count 196 K/mm3 (142-424) 08/21/19 11:28 BUN 21 mg/dl (9-20) H 08/21/19 11:28 Creatinine 0.80 mg/dl (0.66-1.25) 08/21/19 11:28 Estimated Creat Clear 76 mL/min (50-200) 08/21/19 11:28 Was VTE Risk Assessment Performed: Yes VTE Score: 4 VTE Risk Level: Low Risk - Prophylaxis VTE Prophylaxis Ordered?: Yes Types of VTE Prophylaxis: TEDS Knee High Location of Applied Device: Bilateral Lower Extremeties - VTE Diagnosis Confirmed Treatment or plan recommended: Continue Current Treatment
--- NOTE | 2019-08-22 08:10 | HMH.PHAINT ---
HOME MEDICATION RECONCILIATION COMPLETED USING LIST FROM [facility]
--- NOTE | 2019-08-22 09:10 | SW/DCPLANNER ---
This patient currently resides at [facility]. I have spoke with Winter from [place] to confirm patient is ICF level of care and can return once medically stable. I will continue to update Winter during this patients admission.
--- NOTE | 2019-08-22 09:30 | HMH.ACPN2 ---
Internal Medicine - PN: Subj *Date: 08/22/19 *Time: 09:34 Interval history: 84-year-old male patient lying in bed denies chest pain or shortness of breath during the night. Is still complaining of right foot pain. Cardiology catheterization explained to patient he agrees to have performed if needed, daughter (Rosa Isela) was called and everything explained to her. Exam Vital signs and Labs for Last 24 Hours: Temp Pulse Resp BP Pulse Ox 98.2 F 54 L 14 146/78 H 96 08/22/19 07:47 08/22/19 07:47 08/22/19 07:47 08/22/19 07:47 08/22/19 07:47 Laboratory Results - last 24 hr 08/21/19 11:28: WBC 7.7, RBC 4.08 L, Hgb 13.5 L, Hct 38.6 L, MCV 94.6 H, MCH 33.1 H, MCHC 35.0, RDW 12.9, Plt Count 196, MPV 7.9, Neut % (Auto) 63.9, Lymph % (Auto) 24.2, [place] % (Auto) 7.5, Eos % (Auto) 3.9, Baso % (Auto) 0.6, Neut # (Auto) 4.9, Lymph # (Auto) 1.9, [place] # (Auto) 0.6, Eos # (Auto) 0.3, Baso # (Auto) 0.0 08/21/19 11:28: Sodium 137, Potassium 4.6, Chloride 102, Carbon Dioxide 32 H, Anion Gap 7.6, BUN 21 H, Creatinine 0.80, Estimated Creat Clear 76, Estimated GFR 93, Est GFR ( Amer) 112, Glucose 122 H, Calcium 9.1, Troponin I 0.10 H 08/21/19 12:24: Urine Color Yellow, Urine Appearance Clear, Urine pH 5.5, Ur Specific [place] 1.020, Urine Protein Negative, Urine Glucose (UA) Negative, Urine Ketones Negative, Urine Blood Negative, Urine Nitrate Negative, Urine Bilirubin Negative, Urine Urobilinogen 0.2, Ur Leukocyte Esterase Negative, Urine RBC 5-10, Urine WBC Occasional, Ur Squamous Epith Cells Occasional, Urine Bacteria None 08/21/19 15:15: Troponin I 0.10 H 08/21/19 15:15: Chlamy pneumoniae PCR Not detected, Adenovirus (PCR) Not detected, B. pertussis DNA (PCR) Not detected, Coronavirus OC43 (PCR) Not detected, Coronavirus HKU1 (PCR) Not detected, Coronavirus 229E (PCR) Not detected, COVID-19 PCR Not detected, Coronavirus NL63 (PCR) Not detected, Human Metapneumovir PCR Not detected, Influenza A (H1) PCR Not detected, Influ A (H1N1/09) PCR Not detected, Influenza A (H3) PCR Not detected, Influenza Type A (PCR) Not detected, Influenza Type B (PCR) Not detected, M. pneumoniae (PCR) Not detected, Parainfluenza 1 (PCR) Not detected, Parainfluenza 2 (PCR) Not detected, Parainfluenza 3 (PCR) Not detected, Parainfluenza 4 (PCR) Not detected, RSV (PCR) Not detected, Entero/Rhino (PCR) Not detected 08/21/19 15:15: SARS-CoV-2 IgG Ab (Rapid) Negative, SARS-CoV-2 IgM Ab (Rapid) Negative 08/21/19 17:18: Troponin I 0.10 H I & O for Last 24 hours: Intake & Output 08/19/19 08/20/19 08/21/19 08/22/19 23:59 23:59 23:59 23:59 Intake Total Output Total 970 / 970 300 / 300 Balance -970 / -960 -280 / -280 Weight 209 lb 9 oz 212 lb 9.6 oz - Constitutional no acute distress - *Routine HEENT Exam ENT: Present: mucous membranes moist. Absent: sinus tenderness - *Routine Neck Exam Present: trachea midline. Absent: tracheal deviation - *Routine Respiratory Exam Present: CTA bilaterally. Absent: accessory muscle use - *Routine Cardiovascular Exam Present: RRR, murmur - *Routine Abdominal Exam Present: soft, normoactive bowel sounds, distended. Absent: tenderness - *Routine Extremities Exam Present: pulses intact. Absent: calf tenderness - *Routine Skin Exam Present: intact, warm. Absent: jaundice - *Routine Neurological Exam Present: alert, oriented X3 - Routine Psychiatric Exam Present: normal affect Assessment and Plan (1) Chest pain Current visit: Yes Status: Acute Qualifiers: Chest pain type: unspecified Qualified Code(s): R07.9 - Chest pain, unspecified Category: Medical Code(s): R07.9 - Chest pain, unspecified (2) Chronic pain of both feet Current visit: Yes Status: Acute Category: Medical Code(s): M79.671 - Pain in right foot; M79.672 - Pain in left foot; G89.29 - Other chronic pain (3) Elevated troponin Current visit: Yes Status: Acute Category: Medical Code(s): R79.89 - Ot
--- NOTE | 2019-08-22 12:55 | PC.NURSE ---
contacted kayy sanchez. this rn was informed that pt was willing to have a heart cath now. (informed by sam mauricio) kayy sanchez to speak with Dr Allen then pt family. pt is able to eat at this time
--- NOTE | 2019-08-22 13:24 | HMH.PNCARD ---
Subjective Date: 08/22/19 Time: 09:00 Principal diagnosis: elevated troponins, leg pain Interval history: 84 yo WM in bed in NAD. Relates he had some chest pain in the past but it is gone. He was more concerned about the traffic monitor specialist than anything else. Denied chest pain at present. Exam Vital signs and Labs for Last 24 Hours: Temp Pulse Resp BP Pulse Ox 97.8 F 59 L 20 129/57 L 93 L 08/22/19 13:09 08/22/19 13:08/22/19 13:08/22/19 13:08/22/19 13:09 Laboratory Results - last 24 hr 08/21/19 15:15: Troponin I 0.10 H 08/21/19 15:15: Chlamy pneumoniae PCR Not detected, Adenovirus (PCR) Not detected, B. pertussis DNA (PCR) Not detected, Coronavirus OC43 (PCR) Not detected, Coronavirus HKU1 (PCR) Not detected, Coronavirus 229E (PCR) Not detected, COVID-19 PCR Not detected, Coronavirus NL63 (PCR) Not detected, Human Metapneumovir PCR Not detected, Influenza A (H1) PCR Not detected, Influ A (H1N1/09) PCR Not detected, Influenza A (H3) PCR Not detected, Influenza Type A (PCR) Not detected, Influenza Type B (PCR) Not detected, M. pneumoniae (PCR) Not detected, Parainfluenza 1 (PCR) Not detected, Parainfluenza 2 (PCR) Not detected, Parainfluenza 3 (PCR) Not detected, Parainfluenza 4 (PCR) Not detected, RSV (PCR) Not detected, Entero/Rhino (PCR) Not detected 08/21/19 15:15: SARS-CoV-2 IgG Ab (Rapid) Negative, SARS-CoV-2 IgM Ab (Rapid) Negative 08/21/19 17:18: Troponin I 0.10 H I & O for Last 24 hours: Intake & Output 08/20/19 08/21/19 08/22/19 08/23/19 11:59 11:59 11:59 11:59 Intake Total Output Total 1470 / 1470 Balance -1450 / -1450 Weight 209 lb 3.2 oz 212 lb 9.6 oz - *Routine HEENT Exam Head: Present: normocephalic Eye: Present: EOMI, PERRL ENT: Present: mucous membranes moist - *Routine Respiratory Exam Present: CTA bilaterally. Absent: accessory muscle use, rales, rhonchi, wheezes - *Routine Cardiovascular Exam Present: RRR. Absent: murmur, gallop, rubs - *Routine Extremities Exam Present: edema. Absent: calf tenderness - *Routine Neurological Exam Present: alert, moving all extremities Progress Note: A&P (1) Chest pain Status: Acute Current Visit: Yes (2) Chronic pain of both feet Status: Acute Current Visit: Yes (3) Elevated troponin Status: Acute Current Visit: Yes (4) Bilateral carotid bruits Status: Acute Current Visit: No (5) Aortic stenosis Status: Chronic Current Visit: No (6) Dementia Status: Chronic Current Visit: No (7) Heart murmur Status: Chronic Current Visit: No Assessment and Plan for All Diagnoses:: 1. Chest pain with mild elevated troponins. Echo revealed normal LVEF with moderate . Discussed options with daughter, Rosa Isela, via phone and our recommendation for medical therapy only at this time. She related that was what her siblings wanted as well. No plans to pursue further cardiac testing at this time. Will try adding low dose coreg for CP and BP. If he becomes too bradycardic then will switch to low dose norvasc. Continue ASA 81 mg daily. 2. Moderate , on daily lasix. Nothing further to add at this time. 3. Dementia 4. History of epilepsy 5. Dystonia
--- NOTE | 2019-08-22 16:56 | PC.NURSE ---
pt was cleaned up at the beginning of the shift in preparation for a possible heart cath. pubic hair in drea groins were clipped, along with the hair on pts right wrist. pt has period of confusion r/t his dementia. pt has scattered abrasions and wound r/t a fall station captain to hospital. lung sounds are clear but diminished, bowel sounds are active. pt able to call for assistance with urinal. he was able to ambulate to the bathroom with the help of SRNA for a bowel mvmt. nad noted. pt has yeast like areas noted to drea groin area. pt groin was rewashed and will be monitored.
[2019-08-23] VITALS: PULSE 45
[2019-08-23 04:00] VITALS: BP 144/78; PULSE 45; PULSE 50; RESP 18; TEMP 36.7; O2SAT 90
--- NOTE | 2019-08-23 04:20 | PC.NURSE ---
charted on the wrong patient. These are the correct vitals.
[2019-08-23 04:51] VITALS: BMI 26.2
--- NOTE | 2019-08-23 05:45 | PC.NURSE ---
shift summary, pt slept well t/o shift, denied pain
--- NOTE | 2019-08-23 06:54 | PC.NURSE ---
pt refusing lab draw until after breakfast, after one attempted stick
[2019-08-23 08:00] VITALS: BP 164/80; PULSE 54; RESP 18; TEMP 36.9; O2SAT 99
[2019-08-23 08:01] VITALS: PULSE 54
--- NOTE | 2019-08-23 10:37 | HMH.PNCARD ---
Subjective Date: 08/23/19 Time: 10:37 Principal diagnosis: elevated troponins, leg pain Interval history: Is an 84-year-old gentleman lying in bed with no apparent distress. He denies any chest pain or pressure. He denies any shortness of breath or edema. He denies any fever, chills, nausea, vomiting, diarrhea, PND or orthopnea. Exam Vital signs and Labs for Last 24 Hours: Temp Pulse Resp BP Pulse Ox 98.5 F 54 L 18 164/80 H 99 08/23/19 08:00 08/23/19 08:00 08/23/19 08:00 08/23/19 08:00 08/23/19 08:00 I & O for Last 24 hours: Intake & Output 08/20/19 08/21/19 08/22/19 08/23/19 23:59 23:59 23:59 23:59 Intake Total 720 / 720 Output Total 970 / 970 1200 / 1200 Balance -970 / -960 -1180 / -1180 720 / 720 Weight 209 lb 9 oz 212 lb 9.6 oz 204 lb 1 oz Narrative: Telemetry strip is sinus rhythm with a rate of 59. - Constitutional no acute distress, average body habitus - *Routine HEENT Exam Head: Present: normocephalic, atraumatic Eye: Present: EOMI, PERRL ENT: Present: mucous membranes moist - *Routine Neck Exam Present: supple, full ROM (Neck is contracted), carotid bruit (Bilateral), normal carotid upstroke. Absent: JVD, lymphadenopathy - *Routine Respiratory Exam Present: CTA bilaterally - *Routine Cardiovascular Exam Present: RRR, Normal S1, Normal S2, murmur - *Routine Abdominal Exam Present: soft, normoactive bowel sounds. Absent: tenderness, distended - *Routine Extremities Exam Present: pulses intact, normal capillary refill. Absent: cyanosis, clubbing, edema - *Routine Skin Exam Present: intact, warm. Absent: erythema, rash - *Routine Neurological Exam Present: alert, oriented X3 Progress Note: A&P (1) Elevated troponin Status: Acute Current Visit: Yes (2) Chronic pain of both feet Status: Acute Current Visit: Yes (3) Bilateral carotid bruits Status: Acute Current Visit: No (4) Aortic stenosis Status: Chronic Current Visit: No (5) Dementia Status: Chronic Current Visit: No (6) Heart murmur Status: Chronic Current Visit: No Assessment and Plan for All Diagnoses:: Plan: 1. The patient was admitted to the hospital with chest pain and found to have mildly elevated troponins. He has a normal LVEF on echocardiogram with moderate aortic stenosis. Medical management has been recommended at this time and the family is agreeable to this. 2. The patient is tolerating carvedilol well. We will continue this medication. 3. The patient's blood pressure is still running on the high side, start Norvasc 5 mg p.o. daily for better blood pressure control. 4. Continue aspirin 81 mg daily. 5. The patient does have moderate aortic stenosis. He is on Lasix. 6. His LDL goal is less than 55. 7. The patient does have a history of dementia and epilepsy. Will defer management of this to his primary care provider. 8. He does have dystonia. This is also being deferred to his primary care provider. 9. No further recommendations at this time from a cardiac standpoint. He is stable for discharge home from a cardiac standpoint. He can follow-up in cardiology clinic in 1 to 2 weeks on an outpatient basis. Thank you for the opportunity to help participate in the care of this patient.
[2019-08-23 11:41] VITALS: BP 130/61; PULSE 52; RESP 18; TEMP 36.7; O2SAT 98
--- NOTE | 2019-08-23 12:19 | HMH.DCSUM ---
General - General Admission date:: 08/21/19 Discharge date: 08/23/19 HPI HPI: 84 yr old male from [place] sent to ED with c/o chest pain. While at detention pt states he has a sharp pain in the left chest that started last pm but went away and started back up this am. Pt was sent to ed via ambulance for eval. from Pt admitted for cardiac work up and cardiology consult. EKG today is sinus bradycardia with first degree AV block. No acute ST segment changes. Pt with Known cardiac history. Hospital Course Hospital Course: 84-year-old male patient resting quietly in bed denies any chest pain or shortness of breath overnight. Discussed discharge back to [place], he is agreeable to this. 84 yr old male from [place] sent to ED with c/o chest pain. While at detention pt states he has a sharp pain in the left chest that started last pm but went away and started back up this am. Pt was sent to ed via ambulance for eval. from Pt admitted for cardiac work up and cardiology consult. EKG today is sinus bradycardia with first degree AV block. No acute ST segment changes. Pt with Known cardiac history. 08/21/19 CXR: IMPRESSION: Cardiomegaly with right basilar atelectasis or infiltrate Dictated by: Bautista Montelongo has seen and rec: Plan: 1. The patient was admitted to the hospital with chest pain and found to have mildly elevated troponins. He has a normal LVEF on echocardiogram with moderate aortic stenosis. Medical management has been recommended at this time and the family is agreeable to this. 2. The patient is tolerating carvedilol well. We will continue this medication. 3. The patient's blood pressure is still running on the high side, start Norvasc 5 mg p.o. daily for better blood pressure control. 4. Continue aspirin 81 mg daily. 5. The patient does have moderate aortic stenosis. He is on Lasix. 6. His LDL goal is less than 55. 7. The patient does have a history of dementia and epilepsy. Will defer management of this to his primary care provider. 8. He does have dystonia. This is also being deferred to his primary care provider. 9. No further recommendations at this time from a cardiac standpoint. He is stable for discharge home from a cardiac standpoint. He can follow-up in cardiology clinic in 1 to 2 weeks on an outpatient basis. Rounded with Dr. Emanuel, all orders per Dr. Emanuel: 1. We will discharge back to [place] today 2. Amlodipine 5 mg p.o. daily, Coreg 3.125 mg p.o. twice daily 3. F/U PCP 2 weeks 4. F/U Cards 2 weeks Objective Vital signs: Temp Pulse Resp BP Pulse Ox 98.0 F 52 L 18 130/61 98 08/23/19 11:41 08/23/19 11:41 08/23/19 11:41 08/23/19 11:41 08/23/19 11:41 no acute distress - *Routine HEENT Exam ENT: Present: mucous membranes moist. Absent: sinus tenderness - *Routine Neck Exam Present: trachea midline. Absent: tracheal deviation - *Routine Respiratory Exam Present: CTA bilaterally. Absent: accessory muscle use - *Routine Cardiovascular Exam Present: RRR, murmur - *Routine Abdominal Exam Present: normoactive bowel sounds, distended. Absent: tenderness - *Routine Extremities Exam Present: pulses intact. Absent: calf tenderness - *Routine Skin Exam Present: intact, warm. Absent: erythema, jaundice - *Routine Neurological Exam Present: alert Results - Additional Comments Rounded with Dr. Emanuel, all orders per Dr. Emanuel: 1. We will discharge back to [place] today 2. Amlodipine 5 mg p.o. daily, Coreg 3.125 mg p.o. twice daily 3. Cardiology is seen and recommends: Card seen and rec: Plan: 1. The patient was admitted to the hospital with chest pain and found to have mildly elevated troponins. He has a normal LVEF on echocardiogram with moderate aortic stenosis. Medical management has been recommended at this time and the family is agreeable to this. 2. The patient is tolerating carvedilol well. We will continue this med
[2019-08-23 12:24] VITALS: PULSE 60
--- NOTE | 2019-08-23 13:51 | SW/DCPLANNER ---
SENT UPDATES TO [facility] TODAY FOR PATIENT TO DISCHARGE BACK THERE LATER IN THE AFTERNOON.. I HAVE CALLED CLEMENTINA MORILLO AND LEFT HER A MESSAGE..
== END 2019-08-23 15:15 ==
LOC: ER 14:08 → 2ND 15:31
PROVIDERS: Admitting Provider Emergency Medicine; Emergency Provider Emergency Medicine; PCP Emergency Medicine; Visit Provider Emergency Medicine
DX: R07.9 Chest pain, unspecified (principal); I35.0 Nonrheumatic aortic (valve) stenosis; G30.8 Other Alzheimer's disease; F02.80 Dementia in other diseases classified elsewhere, unspecified severity, without behavioral disturbance, psychotic disturbance, mood disturbance, and anxiety; M79.672 Pain in left foot; M79.671 Pain in right foot; R09.89 Other specified symptoms and signs involving the circulatory and respiratory systems; Z79.899 Other long term (current) drug therapy; G40.909 Epilepsy, unspecified, not intractable, without status epilepticus; Z91.040 Latex allergy status; Z88.8 Allergy status to other drugs, medicaments and biological substances; Z88.2 Allergy status to sulfonamides
CPT/HCPCS: 36415; 71045; 80048; 81001; 84484; 85025; 86328; 87581; 87633; 87798; 93005; 93306; 99285; G0378

== ENCOUNTER → 2020-03-22 18:52 | Outpatient (CLI) | payer MEDICARE, MEDICAID, SELFPAY | PROVIDERS: PCP Emergency Medicine; Visit Provider Nurse Practitioner Family | DX: U07.1 COVID-19 (principal) | CPT/HCPCS: U0003 ==

== ENCOUNTER 2020-03-24 01:23 | Inpatient (IN) | payer MEDICARE, MEDICAID, SELFPAY ==
[2020-03-24] VITALS (13 sets, daily range): BP systolic 83–151; BP diastolic 51–115; PULSE 60–80; RESP 18–34; TEMP 36.7–37.2; O2SAT 84–100; BMI 23.0; BMI 26.2
--- NOTE | 2020-03-24 01:30 | XR_ITS ---
PROCEDURE: XR CHEST PORTABLE Referring Doctor: Ye Emanuel Patient Age:84Y CLINICAL HISTORY: soa. Low O2 sats but patient unresponsive and cannot communicate history. Dyspnea. Covid positive. Also renal failure BnpElevated 10 90 COMPARISON: CR XR CHEST PORTABLE from 04/26/2019 CR XR CHEST PORTABLE from 08/15/2019 CR XR CHEST PORTABLE from 08/21/2019 FINDINGS: AP portable supine chest but patient quite kyphotic difficult to position. Comparison to last year portable chest but Suggestion of subtle patchy low-density infiltrate the periphery of the right mid lung. Also minimal patchy infiltrate suspect towards right lung base although the latter could be reflection of chronic changes and some atelectasis but Left chest. Multiple old healed left rib fractures but blunting left CP angle but may reflect chronic pleural changes versus small left pleural effusion. No definitive pneumonia but there are upper normal markings at the left infrahilar region. T-spine with [id number] dextroscoliosis but classroom monitor leads in place . IMPRESSION: No prominent findings but there are some questionable observations bilaterally but Suggestion, suspect subtle low-density infiltrate at the periphery RUL and right mid lung Accentuated markings right lung base has been seen previously-thus may reflect some atelectasis and scarring. Difficult to exclude early infiltrate here. Multiple old left rib fractures; with blunting left CP angle-most likely reflecting minimal pleural scarring,, and less likely scant pleural effusion The Dictated by: lOi Espinal MD 03/24/2020 15:38 Oli Espinal MD in [place] 03/24/2020 15:38
[2020-03-24 01:58] LABS: Microscopic, Urine URINE MICROSCOPIC (MICROSCOPIC)
[2020-03-24 01:59] LABS: ABG HCO3 21.1 mmhg (22.0-26.0); ABG Oxygen Saturation 89 % (90-100); ABG PCO2 36.7 mmhg (35.0-45.0); ABG PH 7.38 mmol/L (7.35-7.45); ABG PO2 55.8 mmhg (80-100); ABG TCO2 22.3 mmhg (23-27)
[2020-03-24 02:00] LABS: Allen's Test Patient Unable; Source Left Radial
[2020-03-24 02:00] LABS: Appearance,Urine SL CLOUDY (Clear); Blood, Urine Negative (Negative); Color,Urine AMBER (Yellow); Glucose,Urine (UA) Negative (Negative); Ketones,Urine TRACE (Negative); Leukocyte Esterase,Urine Negative (Negative); Nitrate,Urine Negative (Negative); PH,Urine 5.5 (5.0-8.5); Protein,Urine Negative (Negative); Specific Gravity, Urine 1.025 (1.005-1.030)
[2020-03-24 02:02] LABS: Bilirubin,Urine 2+ (Negative)
[2020-03-24 02:03] LABS: Amorphous Sediment,Urine Trace /lpf; Mucus,Urine Trace /lpf
--- NOTE | 2020-03-24 02:14 | PC.NURSE ---
md at bedside attempting a femoral stick for blood work. unable to obtain.
--- NOTE | 2020-03-24 02:22 | PC.NURSE ---
[facility] obtained blood after multiple attempts from multiple staff.
--- NOTE | 2020-03-24 02:23 | PC.NURSE ---
located copy of living will. called and attempted to get confirmation of DNR status from both POA-son and daughter. neither answered the phone.
--- NOTE | 2020-03-24 02:24 | ECG_ITS ---
APPROVED REPORT Exam: Resting ECG HR:67 bpm ECG Measurements Heart Rate 67 AXES AR 250 P 32 QRSd 104 QRS -56 QT 440 T 63 QTc 464 Conclusion Sinus rhythm with 1st degree AV block Artifact c/w unusual electical impulses - ? stimulator vs. malfuntioning pacer? Left anterior fascicular block Possible Lateral infarct, age undetermined Abnormal ECG Electronically signed by : Edd Mckeon, 03/25/2020 19:40:56
[2020-03-24 02:34] LABS: Basophils # 0.1 K/mm3 (0-0.2); Basophils % 0.6 % (0.1-2.0); Eosinophils % 0.2 % (0.1-12.0); Hematocrit 47.8 % (42.0-52.0); Hemoglobin 16.3 g/dL (14.1-18.0); Lymphocytes # 1.3 K/mm3 (0.7-4.5); Lymphocytes % 12.7 % (10-50); Mean Corpuscular HGB Conc 34.1 g/dL (31.8-35.4); Mean Corpuscular Hemoglobin 33.2 pg (27.0-31.2); Mean Corpuscular Volume 97.3 fl (80-94); Mean Platelet Volume 10.8 fl (7.4-10.4); Monocytes # 0.9 K/mm3 (0.1-1.0); Neutrophils # 7.9 K/mm3 (1.8-7.8); Neutrophils % 77.5 % (37.0-80.0); Platelet Count 252 K/mm3 (142-424); Red Blood Count 4.91 M/mm3 (4.60-6.20); Red Cell Distribution Width 13.3 % (11.5-17.5); White Blood Count 10.2 K/mm3 (4.8-10.8)
[2020-03-24 02:39] LABS: Chloride 116 mmol/L (98-107)
[2020-03-24 02:40] LABS: Potassium 3.8 mmoL/L (3.5-5.1)
[2020-03-24 02:42] LABS: Alanine Aminotransferase 19 U/L (12-78); Alkaline Phosphatase 128 U/L (38-126); Anion Gap 22.8 mEq/L (5-15); Aspartate Amino Transferase 37 U/L (17-59); Bilirubin,Direct 1.2 mg/dl (0.0-0.4); Bilirubin,Indirect 0.1 mg/dL (0.0-0.9); Bilirubin,Total 1.3 mg/dl (0.2-1.3); Bilirubin,Unconjugated 0.2 mg/dL (0.0-1.1); Carbon Dioxide 21 mmol/L (22.0-30.0); Creatinine Clearance Estimated 11 mL/min (50-200); GFR (African American) 12 ML/MIN (>60); Phosphorous 6.9 mg/dl (2.5-4.5)
[2020-03-24 02:43] LABS: Albumin Level 3.9 g/dl (3.5-5.0); Calcium 8.9 mg/dl (8.4-10.2); Glucose 109 mg/dl (74-100); Magnesium 3.4 mg/dl (1.6-2.3); Total Protein,Serum 7.9 g/dl (6.3-8.2)
[2020-03-24 02:44] LABS: Lactic Acid 2.8 mmol/L (0.7-2.1)
[2020-03-24 02:45] LABS: Blood Urea Nitrogen 97 mg/dl (9-20)
[2020-03-24 02:46] LABS: Estimated Glomerular Filt Rate 10 ml/min (>60); Sodium 156 mmol/L (136-145)
[2020-03-24 02:51] LABS: NT Pro Brain Natriuretic Pep. 1090 pg/mL (0-450)
--- NOTE | 2020-03-24 02:52 | PC.NURSE ---
critical labs reported to MD at this time
[2020-03-24 02:56] LABS: Troponin I 0.33 ng/ml (0.00-0.034)
[2020-03-24 02:58] LABS: Coronavirus 19 IgG Antibody Negative (Negative); Coronavirus 19 IgM Antibody Negative (Negative)
--- NOTE | 2020-03-24 03:26 | HMH.EDSOB ---
ED Disposition Clinical Impression: COVID-19 virus detected, ALFREDO (acute kidney injury), Elevated troponin, Diastolic dysfunction Respiratory failure with hypoxia Qualifiers: Chronicity: acute on chronic Qualified Code(s): J96.21 - Acute and chronic respiratory failure with hypoxia Aortic stenosis Qualifiers: Cardiac valve disease etiology: nonrheumatic Qualified Code(s): I35.0 - Nonrheumatic aortic (valve) stenosis Dementia Qualifiers: Dementia type: Alzheimer's Alzheimer's disease onset: late-onset Dementia behavioral disturbance: without behavioral disturbance Qualified Code(s): G30.1 - Alzheimer's disease with late onset Disposition: Admitted As Inpatient Condition on Discharge: Critical - Critical Care Critical Care Time: No Attestation: On 03/24/20, the high probability of a clinically significant, sudden or life threatening deterioration of the following system(s) required my full and direct attention, intervention and personal management. The time I documented below is in addition to time spent performing reported procedures but includes the following listed in this critical care notation. Total Critical Care Time: 60 Vital system(s) involved:: Respiratory Failure My critical care processes included: Assessment & monitoring of V/S, Initial and Re-exams, Data Review/Interpretation, Medication Orders and management, Documentation Medical Decision Making - Medical Records Medical records reviewed: Yes: I reviewed the patient's medical records. - Rafa Inquiry Pt receiving controlled substance: No Vital Signs: 03/24/20 01:23 03/24/20 02:19 03/24/20 03:09 Temperature 98.9 F Temperature Source Rectal Pulse Rate [Right Brachial] 80 71 76 Respiratory Rate 34 H 32 H 32 H Blood Pressure [Right Arm] 149/108 H 151/115 H 105/87 L Blood Pressure Mean [Right Arm] 121 127 93 Blood Pressure Source [Right Arm] Automatic Cuff Automatic Cuff Blood Pressure Position [Right Arm] Sitting Sitting Supine 02 Sat by Pulse Oximetry 84 L 92 L 87 L Oxygen Delivery Method Room Air Room Air Nasal Cannula Oxygen Flow Rate (LPM) 6 03/24/20 03:47 Temperature Temperature Source Pulse Rate [Right Brachial] 69 Respiratory Rate 31 H Blood Pressure [Right Arm] 94/68 L Blood Pressure Mean [Right Arm] 76 Blood Pressure Source [Right Arm] Automatic Cuff Blood Pressure Position [Right Arm] Sitting 02 Sat by Pulse Oximetry 94 L Oxygen Delivery Method Vapotherm Oxygen Flow Rate (LPM) - Lab Data Lab results reviewed: Yes: I reviewed the patient's lab results. Lab Results 03/24/20 01:30: Specimen Source Left radial, O2 % 4lpm nc., ABG pH 7.38, ABG pCO2 36.7, ABG pO2 55.8 L, ABG HCO3 21.1 L, ABG Total CO2 22.3 L, ABG O2 Saturation 89 L, ABG Base Excess -4.0 L, Dom Test Patient unable 03/24/20 01:50: Urine Color Angelia, Urine Appearance Sl cloudy, Urine pH 5.5, Ur Specific Jackson 1.025, Urine Protein Negative, Urine Glucose (UA) Negative, Urine Ketones Trace, Urine Blood Negative, Urine Nitrate Negative, Urine Bilirubin 2+ A, Urine Urobilinogen 1.0, Ur Leukocyte Esterase Negative, Urine WBC 5-10, Ur Squamous Epith Cells 3-5, Ur Renal Epithelial Cell 3-5, Amorphous Sediment Trace, Urine Mucus Trace 03/24/20 02:20: WBC 10.2, RBC 4.91, Hgb 16.3, Hct 47.8, MCV 97.3 H, MCH 33.2 H, MCHC 34.1, RDW 13.3, Plt Count 252, MPV 10.8 H, Neut % (Auto) 77.5, Lymph % (Auto) 12.7, [place] % (Auto) 9.0, Eos % (Auto) 0.2, Baso % (Auto) 0.6, Neut # (Auto) 7.9 H, Lymph # (Auto) 1.3, [place] # (Auto) 0.9, Eos # (Auto) 0.0, Baso # (Auto) 0.1 03/24/20 02:20: Sodium 156 H*, Potassium 3.8, Chloride 116 H, Carbon Dioxide 21 L, Anion Gap 22.8 H, BUN 97 H, Creatinine 5.50 H, Estimated Creat Clear 11, Estimated GFR 10 L*, Est GFR ( Amer) 12 L*, Glucose 109 H, Calcium 8.9, Phosphorus 6.9 H, Magnesium 3.4 H, Total Bilirubin 1.3, Direct Bilirubin 1.2 H, Conjugated Bilirubin 0.0, Indirect Bilirubin 0.1, Unconjugated Bilirubin 0.2, AST 37, ALT 19, Alkaline Phosphatase 128 H
--- NOTE | 2020-03-24 04:46 | PC.NURSE ---
PT ARRIVED VIA STRETCHER TO THE FLOOR FROM WITH STAFF AT [id number].
[2020-03-24 05:50] LABS: Reflex Lactic Add Lactic Reflex
[2020-03-24 06:07] LABS: Lactic Acid Follow Up (RFLX 1) 3.2 mmol/L (0.7-2.1)
--- NOTE | 2020-03-24 06:30 | PC.NURSE ---
S/W pt's son & POA rodney Vu III update on pt and confirmed DNR/DNI status.
[2020-03-24 07:57] LABS: Reflex Lactic (2 hrs) Add Lactic Reflex
--- NOTE | 2020-03-24 07:57 | PC.WOUNDNOTE ---
Wound Location: BLE shins- scabbed areas & toes
--- NOTE | 2020-03-24 08:16 | HMH.PHAVTE ---
[facility] Pharmacy VTE Monitoring - Patient Demographics Admission date: 03/24/20 Report Date: 03/24/20 Time: 08:16 Allergies/Adverse Reactions: Patient Allergies amitriptyline Allergy (Verified 03/23/20 13:41) duloxetine [From Cymbalta] Allergy (Verified 03/23/20 13:41) latex Allergy (Verified 03/23/20 13:41) Sulfa (Sulfonamide Antibiotics) Allergy (Verified 03/23/20 13:41) Height: 1.8 m Weight: 85.02 kg Patient Problems: Current Active Problems Elevated troponin (Acute) COVID-19 virus detected (Acute) Respiratory failure with hypoxia (Acute) ALFREDO (acute kidney injury) (Acute) Diastolic dysfunction (Chronic) Aortic stenosis (Chronic) Dementia (Chronic) - VTE Risk Labs: VTE Related Lab Results Hgb 16.3 g/dL (14.1-18.0) 03/24/20 02:20 Hct 47.8 % (42.0-52.0) 03/24/20 02:20 Plt Count 252 K/mm3 (142-424) 03/24/20 02:20 BUN 97 mg/dl (9-20) H 03/24/20 02:20 Creatinine 5.50 mg/dl (0.66-1.25) H 03/24/20 02:20 Estimated Creat Clear 11 mL/min (50-200) 03/24/20 02:20 VTE Score: 6 VTE Risk Level: Moderate Risk - Prophylaxis VTE Prophylaxis Ordered?: Yes Types of VTE Prophylaxis: TEDS Knee High Location of Applied Device: Bilateral Lower Extremeties
--- NOTE | 2020-03-24 09:17 | HMH.HP ---
*Admission Date: 03/24/20 *Chief complaint: sob *History of present illness: this pt who resides at on license of [facility] has recent dx of covid-19 - he has dec mental status and sob - no fever - pt was seen in the ed and had acute renal and resp failure - [facility] History I have reviewed the patient's past medical history: Yes Medical History: Reports:: Carotid Stenosis, Congestive Heart Failure, Coronary Artery Disease, Dementia, Heart Murmur, Hepatitis, Myocardial Infarction, Osteoporosis, Peripheral Artery Disease, Peripheral Vascular Disease, Renal Disease, Renal Insufficiency, Seizures Denies:: Cancer, Diabetes Mellitus Type 1, Diabetes Mellitus Type 2 *Have you ever received a pneumonia vaccine?: Yes *Have you received a flu vaccine this season?: Yes Other Medical History: Reports: Osteoporosis, Other Laterality Cases: Right: Total Knee Replacement Other Surgeries: Yes: Cholecystectomy, Other - *Social History Smoking Status: Never smoker Alcohol Intake: never Substance Use Type: denies use *Occupational Status:: retired Housing: assisted living facility Household Members: other *Travel in the last 8 weeks: None Family Hx:: Unable to obtain Review of Systems - Review of Systems Review of systems:: unable to obtain Meds Home Medications Medication Instructions Recorded Confirmed Type lamotrigine 200 mg tablet 200 mg PO BID 04/03/19 03/24/20 History lamotrigine 25 mg tablet 25 mg PO BID 04/03/19 03/24/20 History lutein 10 mg tablet 10 mg PO DAILY 06/28/19 03/24/20 History pramipexole 0.125 mg tablet 0.125 mg PO HS 06/28/19 03/24/20 History Acetaminophen [Acetaminophen Extra 500 mg PO Q6HP PRN 08/22/19 03/24/20 History Strength] Docusate Sodium [Colace 250mg 250 mg PO BID 08/22/19 03/24/20 History capsule] Ibuprofen [Motrin 600mg 600 mg PO Q8HP PRN 08/22/19 03/24/20 History Tablet] diphenhydrAMINE HCl 25 mg PO Q6HP PRN 08/22/19 03/24/20 History [Diphenhydramine HCl] amlodipine 5 mg tablet 5 mg PO DAILY 10/24/19 03/24/20 History aspirin 81 mg tablet,delayed 81 mg PO DAILY 10/24/19 03/24/20 History release carvedilol 3.125 mg tablet 3.125 mg PO BID 10/24/19 03/24/20 History gabapentin 800 mg tablet 1,600 mg PO BID tab 10/24/19 03/24/20 History tramadol 50 mg tablet 50 mg PO QHS #30 tab 02/20/20 03/24/20 Rx Cyclobenzaprine HCl [Flexeril 10mg 10 mg PO BID PRN 03/24/20 03/24/20 History tablet] Furosemide [Furosemide 40MG tAB*] 40 mg PO DAILY 03/24/20 03/24/20 History Gabapentin 800 mg PO DAILY 03/24/20 03/24/20 History Sennosides [Senokot 8.6mg tablet] 8.6 mg PO BID 03/24/20 03/24/20 History Allergies Allergy/AdvReac Type Severity Reaction Status Date / Time amitriptyline Allergy Verified 03/23/20 13:41 duloxetine [From Cymbalta] Allergy Verified 03/23/20 13:41 latex Allergy Verified 03/23/20 13:41 Sulfa (Sulfonamide Allergy Verified 03/23/20 13:41 Antibiotics) Exam Vital signs and Labs for Last 24 Hours: Temp Pulse Resp BP Pulse Ox 98.9 F 69 34 H 83/51 L 100 03/24/20 04:51 03/24/20 04:51 03/24/20 04:51 03/24/20 04:51 03/24/20 07:20 Laboratory Results - last 24 hr 03/24/20 01:30: Specimen Source Left radial, O2 % 4lpm nc., ABG pH 7.38, ABG pCO2 36.7, ABG pO2 55.8 L, ABG HCO3 21.1 L, ABG Total CO2 22.3 L, ABG O2 Saturation 89 L, ABG Base Excess -4.0 L, Dom Test Patient unable 03/24/20 01:50: Urine Color Angelia, Urine Appearance Sl cloudy, Urine pH 5.5, Ur Specific [place] 1.025, Urine Protein Negative, Urine Glucose (UA) Negative, Urine Ketones Trace, Urine Blood Negative, Urine Nitrate Negative, Urine Bilirubin 2+ A, Urine Urobilinogen 1.0, Ur Leukocyte Esterase Negative, Urine WBC 5-10, Ur Squamous Epith Cells 3-5, Ur Renal Epithelial Cell 3-5, Amorphous Sediment Trace, Urine Mucus Trace 03/24/20 02:20: WBC 10.2, RBC 4.91, Hgb 16.3, Hct 47.8, MCV 97.3 H, MCH 33.2 H, MCHC 34.1, RDW 13.3, Plt Count 252, MPV 10.8 H, Neut % (Auto) 77.5, Lymph % (Auto) 12.7, [place] % (Auto) 9.0, Eos %
--- NOTE | 2020-03-24 09:24 | HMH.PHAINT ---
HOME MEDICATIONS RECONCILED FROM MAY. HOME MEDS WILL NOT BE RESTARTED RIGHT NOW PER DR DEE.
--- NOTE | 2020-03-24 20:38 | PC.NURSE ---
PATIENT IS NON RESPONSIVE, LUNGS ARE DIMINISHED, PULSES EQUAL. DURING TRANSITIONAL ROUNDS WITH DR. DEE, THIS RN WAS GIVEN VERBAL ORDER THAT PATIENT IS ABLE TO HAVE FAMILY MEMBERS AT BEDSIDE DUE TO PATIENT WILL BE PLACED ON END OF LIFE CARE. THIS RN SPOKE WITH PATIENT'S DAUGHTER MIKAYLA AND INFORMED HER OF PATIENT'S CONDITION AND THAT FAMILY MAY VISIT FOR A LIMITED TIME WITH PROPER PPE. PATIENT'S DAUGHTER STATED THAT SHE LIVED 12 HRS AWAY BUT WILL NOTIFY HER BROTHER. PATIENT'S SON PHONED THIS RN, THIS RN EXPLAINED THE PPE PROTOCOL AND THE RISK OF COVID, PATIENT'S SON DECLINED TO VISIT. PATIENT'S OTHER DAUGHTER, PARISA AND HER SON CAME TO VISIT PATIENT. [employer]ED [employer]TER, MICHELLE HELPED THE VISITORS APPLY PPE. THE RN EXPLAINED IN DEPTH THE RISKS OF GETTING COVID, BOTH VISITORS VERBALIZED AN UNDERSTANDING. PATIENT HAD A TOTAL OF 25ML OUTPUT OF DARK BROWN URINE. NO NEW CONCERNS AT THIS TIME.
[2020-03-25] VITALS: BP 98/54; PULSE 63; RESP 28; TEMP 37.1; O2SAT 100
--- NOTE | 2020-03-25 03:59 | PC.NURSE ---
Addendum entered by Susan Patricia RN 03/25/20 04:47: Pt on 40L, *90% vapotherm, sats in the high 90s. Original Note: No acute changes overnight. Pt remained on vapotherm, 40L, 100%. Sats in the high 90s. Pt has been unresponsive this shift and Lungs are diminished overall. Pt has had very minimal UOP via starkey this shift and no intake. NS @ 100. Bowel sounds positive x4, abd soft and round. VSS, call light in reach, no concerns at this time.
[2020-03-25 04:00] VITALS: BP 118/53; PULSE 61; RESP 23; TEMP 36.3; O2SAT 100
[2020-03-25 05:00] VITALS: BMI 26.6
--- NOTE | 2020-03-25 06:53 | PC.NURSE ---
Pt given partial basin bath, new gown placed, face washed, hair combed, bobo trimmed around lips and washed, starkey care given, oral care given and pt was repositioned at this time.
[2020-03-25 08:00] VITALS: BP 136/84; PULSE 78; RESP 20; TEMP 37.2; O2SAT 90
--- NOTE | 2020-03-25 09:10 | HMH.ACPN2 ---
Internal Medicine - PN: Subj *Date: 03/25/20 *Time: 09:10 Interval history: pt laying in bed, does not respond to stimuli. Exam Vital signs and Labs for Last 24 Hours: Temp Pulse Resp BP Pulse Ox 97.4 F L 61 23 118/53 L 100 03/25/20 04:00 03/25/20 04:00 03/25/20 04:00 03/25/20 04:00 03/25/20 04:00 I & O for Last 24 hours: Intake & Output 03/22/20 03/23/20 03/24/20 03/25/20 11:59 11:59 11:59 11:59 Intake Total 1999 995 / 995 Output Total 50 / 50 Balance 1999 945 / 945 Weight 187 lb 7 oz 190 lb 6 oz - Constitutional no acute distress, chronically ill appearing - *Routine HEENT Exam Head: Present: normocephalic Eye: Present: PERRL ENT: Present: mucous membranes moist - *Routine Neck Exam Present: supple. Absent: lymphadenopathy Comments: kyphosis - *Routine Respiratory Exam Present: CTA bilaterally - *Routine Cardiovascular Exam Present: RRR, murmur - *Routine Abdominal Exam Present: soft, normoactive bowel sounds. Absent: tenderness - *Routine Extremities Exam Present: normal capillary refill. Absent: cyanosis, clubbing, edema - *Routine Skin Exam Present: warm. Absent: rash - *Routine Neurological Exam pt nonresponsive - Routine Psychiatric Exam Present: unable to assess Assessment and Plan (1) COVID-19 virus detected Status: Acute Category: Medical Code(s): U07.1 - COVID-19 (2) Respiratory failure with hypoxia Status: Acute Qualifiers: Chronicity: acute on chronic Qualified Code(s): J96.21 - Acute and chronic respiratory failure with hypoxia Category: Medical Code(s): J96.91 - Respiratory failure, unspecified with hypoxia (3) ALFREDO (acute kidney injury) Status: Acute Category: Medical Code(s): N17.9 - Acute kidney failure, unspecified (4) Diastolic dysfunction Status: Chronic Category: Medical Code(s): I51.89 - Other ill-defined heart diseases (5) Aortic stenosis Status: Chronic Qualifiers: Cardiac valve disease etiology: nonrheumatic Qualified Code(s): I35.0 - Nonrheumatic aortic (valve) stenosis Category: Medical Code(s): I35.0 - Nonrheumatic aortic (valve) stenosis (6) Dementia Status: Chronic Qualifiers: Dementia type: Alzheimer's Alzheimer's disease onset: late-onset Dementia behavioral disturbance: without behavioral disturbance Qualified Code(s): G30.1 - Alzheimer's disease with late onset; F02.80 - Dementia in other diseases classified elsewhere without behavioral disturbance Category: Medical Code(s): F03.90 - Unspecified dementia without behavioral disturbance - Assessment and plan all Dx Assessment and Plan for all problems:: rounded with Dr Emanuel all orders per Dr Emanuel consult hospice
[2020-03-25 09:14] LABS: Alanine Aminotransferase 17 U/L (12-78); Albumin Level 3.5 g/dl (3.5-5.0); Alkaline Phosphatase 112 U/L (38-126); Anion Gap 25.1 mEq/L (5-15); Aspartate Amino Transferase 57 U/L (17-59); Bilirubin,Total 1.4 mg/dl (0.2-1.3); Calcium 8.1 mg/dl (8.4-10.2); Carbon Dioxide 21 mmol/L (22.0-30.0); Chloride 117 mmol/L (98-107); Creatinine Clearance Estimated 9 mL/min (50-200); Estimated Glomerular Filt Rate 7 ml/min (>60); GFR (African American) 8 ML/MIN (>60); Globulin 3.5 g/dL (1.3-3.2); Glucose 144 mg/dl (74-100); Potassium 4.1 mmoL/L (3.5-5.1)
[2020-03-25 09:22] LABS: Blood Urea Nitrogen 134 mg/dl (9-20); Sodium 159 mmol/L (136-145)
--- NOTE | 2020-03-25 09:44 | SW/DCPLANNER ---
Addendum entered by [facility] 03/26/20 11:32: I have notified patients nurse (Krysten) that patient can discharge back to [facility] at this time. Kirstie with Hospice has notified me that O2 has been set up. Patient will discharge today. Addendum entered by [facility] 03/26/20 11:13: COVID test is NOT required for this patient per [facility]. Addendum entered by [facility] 03/26/20 09:30: This patient will discharge to [facility] today under Hospice Care. I have notified Winter and Kirstie with Hospice. I have also informed the nurse (Krysten) to not discharge patient until I call due to Hospice setting up oxygen at [facility]. Addendum entered by [facility] 03/25/20 15:08: This patient will discharge to [facility] under Hospice services once medically stable for discharge. Kirstie has stated that patient will return with 15L concentrator via Hospice and oxy mask. Once medically stable patient will transport via ambulance with high flow oxygen. Winter with [facility] and Dr Emanuel are aware of plan. Patient could discharge tomorrow. Addendum entered by [facility] 03/25/20 13:27: Kirstie has stated that she is going to speak with Koby regarding respiratory decisions. Kirstie will follow back up with me once she speaks with Koby. Addendum entered by [facility] 03/25/20 13:15: Kirstie Lopez with Hospice is at [facility] to evaluate this patient now. Original Note: This patient currently resides at [facility] I[facility] level of care per Winter. I have spoke with patients son this morning regarding discharge plans: has requested Hospice services for this patient. After a lengthy discussion with son he is agreeable for Hospice services once he returns back to [facility]. Patient information has been faxed to [facility]: I will follow up once patient information is received/reviewed.
--- NOTE | 2020-03-25 10:21 | PC.NURSE ---
CRITIAL AND NOTIFICATION LABS REPORTED TO Cathi MCINTOSH APRN AT 0920 NO NEW ORDERS
--- NOTE | 2020-03-25 11:00 | PC.NURSE ---
ATTEMPTED TO GET SPUTUM SAMPLE, PT NOT RESPONSIVE ENOUGH AT THIS TIME TO BE ABLE TO GIVE A SAMPLE.
--- NOTE | 2020-03-25 11:06 | HMH.PULMCON ---
*Admission Date: 03/24/20 *Reason for consult:: Recent history of COVID-19 pneumonia, acute hypoxic respiratory failure *History of present illness: 84-year-old male with a recent diagnosis of COVID-19 pneumonia presented to hospital with worsening respiratory failure and volume overload and pulmonary was called for further management. Patient obtunded not responding to verbal commands only moaning to painful stimuli. Much of the history is obtained from chart review. [facility] History Medical History: Reports:: Carotid Stenosis, Congestive Heart Failure, Coronary Artery Disease, Dementia, Heart Murmur, Hepatitis, Myocardial Infarction, Osteoporosis, Peripheral Artery Disease, Peripheral Vascular Disease, Renal Disease, Renal Insufficiency, Seizures Denies:: Cancer, Diabetes Mellitus Type 1, Diabetes Mellitus Type 2 *Have you ever received a pneumonia vaccine?: Yes *Have you received a flu vaccine this season?: Yes Other Medical History: Reports: Osteoporosis, Other Laterality Cases: Right: Total Knee Replacement Other Surgeries: Yes: Cholecystectomy, Other - *Social History Smoking Status: Never smoker Alcohol Intake: never Substance Use Type: denies use *Occupational Status:: retired Housing: assisted living facility Household Members: other *Travel in the last 8 weeks: None Family Hx:: Unable to obtain ROS - Review of Systems Review of systems:: unable to obtain Unable to obtain as patient was obtunded not responding to verbal stimuli [facility] Home Medications Medication Instructions Recorded Confirmed Type lamotrigine 200 mg tablet 200 mg PO BID 04/03/19 03/24/20 History lamotrigine 25 mg tablet 25 mg PO BID 04/03/19 03/24/20 History lutein 10 mg tablet 10 mg PO DAILY 06/28/19 03/24/20 History pramipexole 0.125 mg tablet 0.125 mg PO HS 06/28/19 03/24/20 History Acetaminophen [Acetaminophen Extra 500 mg PO Q6HP PRN 08/22/19 03/24/20 History Strength] Docusate Sodium [Colace 250mg 250 mg PO BID 08/22/19 03/24/20 History capsule] Ibuprofen [Motrin 600mg 600 mg PO Q8HP PRN 08/22/19 03/24/20 History Tablet] diphenhydrAMINE HCl 25 mg PO Q6HP PRN 08/22/19 03/24/20 History [Diphenhydramine HCl] aspirin 81 mg tablet,delayed 81 mg PO DAILY 10/24/19 03/24/20 History release carvedilol 3.125 mg tablet 3.125 mg PO BID 10/24/19 03/24/20 History gabapentin 800 mg tablet 1,600 mg PO 1300,2100 tab 10/24/19 03/24/20 History Amlodipine Besylate [Norvasc 5mg 5 mg PO DAILY 03/24/20 03/24/20 History tablet] Bisacodyl [Bisacodyl 10mg Supp] 10 mg RC DAILYP PRN 03/24/20 03/24/20 History Cyclobenzaprine HCl [Flexeril 10mg 10 mg PO BID PRN 03/24/20 03/24/20 History tablet] Furosemide [Furosemide 40MG tAB*] 40 mg PO DAILY 03/24/20 03/24/20 History Gabapentin 800 mg PO DAILY 03/24/20 03/24/20 History Sennosides/Docusate Sodium 1 each PO BID 03/24/20 03/24/20 History [Senexon-S 50-8.6 mg Tablet] Tramadol HCl [Tramadol 50mg 50 mg PO HS 03/24/20 03/24/20 History Tab] polyethylene glycoL 3350 [Miralax 17 gm PO DAILY 03/24/20 03/24/20 History 17gm Packet] risperiDONE [Risperdal 1mg Tablet] 1 mg PO BID 03/24/20 03/24/20 History Allergies Allergy/AdvReac Type Severity Reaction Status Date / Time amitriptyline Allergy Verified 03/23/20 13:41 duloxetine [From Cymbalta] Allergy Verified 03/23/20 13:41 latex Allergy Verified 03/23/20 13:41 Sulfa (Sulfonamide Allergy Verified 03/23/20 13:41 Antibiotics) Exam - Constitutional Constitutional:: lethargic - HENMT Exam HENMT: atraumatic - Respiratory Exam Comments: Bilateral clear breath except for lower lobe coarse breath sounds - Cardiovascular Exam Cardiac:: S1, S2 - GI Exam GI:: soft - Skin Exam Skin: warm - Neurological Exam Patient obtunded, only responding to painful stimuli with moaning. Not responding to verbal stimuli. - Extremities Exam Extremities: no cyanosis, no clubbing, no edema Internal Med
[2020-03-25 11:14] VITALS: BMI 26.5
[2020-03-25 11:54] VITALS: BP 130/82; PULSE 80; RESP 20; TEMP 36.5; O2SAT 93
[2020-03-25 15:58] VITALS: BP 128/81; PULSE 77; RESP 20; TEMP 36.9; O2SAT 91
[2020-03-25 20:00] VITALS: BP 130/79; PULSE 77; RESP 20; TEMP 37; O2SAT 91
--- NOTE | 2020-03-25 20:19 | PC.NURSE ---
no acute changes. pt turned q2hr, oral care given. vss. will cont. to monitor.
[2020-03-26] VITALS (10 sets, daily range): BP systolic 107–124; BP diastolic 48–60; PULSE 64–73; RESP 20–24; TEMP 37.2–38.1; O2SAT 87–100; BMI 27.1
--- NOTE | 2020-03-26 02:03 | PC.NURSE ---
Addendum entered by Ludivina Chahal RN 03/26/20 04:14: AT 1600 PT HAD 500 ML'S OF UOP. Original Note: PT IS RESTING IN BED. PT HAS NOT ANSWERED ANY QUESTIONS THIS SHIFT AND DOES NOT FOLLOW ANY COMMANDS. TURNED AND REPOSITIONED IN BED. O2 SATURATION HAS MAINTAINED 95-98% ON VAPOTHERM. ORAL CARE PROVIDED. TURNED AND REPOSITIONED. PT HAS NOT HAD ANY UOP THIS SHIFT. LUNG SOUNDS DIMINISHED. ABDOMEN SOFT/WITH HYPOACTIVE BOWEL SOUNDS. PT HAS SCATTERED ABRASIONS NOTED TO BLE. HEEL PROTECTORS IN PLACE. WILL CONTINUE TO MONITOR.
[2020-03-26 06:02] LABS: Basophils # 0.1 K/mm3 (0-0.2); Basophils % 0.4 % (0.1-2.0); Eosinophils % 0.1 % (0.1-12.0); Hematocrit 41.3 % (42.0-52.0); Hemoglobin 14.3 g/dL (14.1-18.0); Lymphocytes # 0.6 K/mm3 (0.7-4.5); Lymphocytes % 3.6 % (10-50); Mean Corpuscular HGB Conc 34.6 g/dL (31.8-35.4); Mean Corpuscular Hemoglobin 33.7 pg (27.0-31.2); Mean Corpuscular Volume 97.6 fl (80-94); Mean Platelet Volume 10.5 fl (7.4-10.4); Monocytes # 0.5 K/mm3 (0.1-1.0); Monocytes % 2.9 % (1.7-9.3); Neutrophils # 15.9 K/mm3 (1.8-7.8); Neutrophils % 93.1 % (37.0-80.0); Platelet Count 176 K/mm3 (142-424); Red Blood Count 4.24 M/mm3 (4.60-6.20); Red Cell Distribution Width 14.1 % (11.5-17.5)
[2020-03-26 06:18] LABS: MANUAL DIFFERENTIAL MANUAL DIFFERENTIAL (MANUAL DIFF)
--- NOTE | 2020-03-26 06:31 | PC.NURSE ---
Sputum cup at bedside, Pt not coherent enough to give sample.
[2020-03-26 06:44] LABS: Anion Gap 22.6 mEq/L (5-15); Calcium 8.3 mg/dl (8.4-10.2); Carbon Dioxide 22 mmol/L (22.0-30.0); Chloride 121 mmol/L (98-107); Creatinine Clearance Estimated 9 mL/min (50-200); Estimated Glomerular Filt Rate 7 ml/min (>60); GFR (African American) 8 ML/MIN (>60); Glucose 144 mg/dl (74-100); Potassium 3.6 mmoL/L (3.5-5.1)
[2020-03-26 07:11] LABS: Blood Urea Nitrogen 151 mg/dl (9-20); Sodium 162 mmol/L (136-145)
--- NOTE | 2020-03-26 07:39 | PC.NURSE ---
RN aware of elevated temp.
--- NOTE | 2020-03-26 09:07 | [facility].DCSUM ---
General - General Admission date:: 03/24/20 Discharge date: 03/26/20 HPI HPI: this pt who resides at [facility] has recent dx of covid-19 - he has dec mental status and sob - no fever - pt was seen in the ed and had acute renal and resp failure - Hospital Course Hospital Course: 84-year-old male with a recent diagnosis of COVID-19 pneumonia presented to hospital with worsening respiratory failure and volume overload. Patient obtunded not responding to verbal commands CXR: No prominent findings but there are some questionable observations bilaterally but Suggestion, suspect subtle low-density infiltrate at the periphery RUL and right mid lung Accentuated markings right lung base has been seen previously-thus may reflect some atelectasis and scarring. Difficult to exclude early infiltrate here. Multiple old left rib fractures; with blunting left CP angle-most likely reflecting minimal pleural scarring,, and less likely scant pleural effusion Dictated by: Teddy, Sodium 162, potassium 3.6, BUN and creatinine increasing to 151 and 7.5 today. White blood cell count 17, H&H stable at 14.3/41.3 and UA negative Patient still obtunded does not respond to verbal stimuli, will respond to tactile stimuli with moaning. PLAN: Patient will be discharged back to [facility] today under hospice care Objective Vital signs: Temp Pulse Resp BP Pulse Ox 100.5 F H 73 22 124/48 L 92 L 03/26/20 07:38 03/26/20 07:38 03/26/20 07:38 03/26/20 07:38 03/26/20 07:38 obtunded - *Routine HEENT Exam Head: Present: normocephalic Eye: Present: EOMI ENT: Present: mucous membranes dry - *Routine Neck Exam Present: trachea midline. Absent: tracheal deviation - *Routine Respiratory Exam Present: CTA bilaterally. Absent: accessory muscle use - *Routine Cardiovascular Exam Present: RRR, murmur - *Routine Abdominal Exam Present: soft, normoactive bowel sounds. Absent: distended, rigid - *Routine Extremities Exam Present: pulses intact. Absent: cyanosis, clubbing - *Routine Skin Exam Present: intact, dry, warm. Absent: cyanosis, erythema - *Routine Neurological Exam Present: altered mental status - Routine Psychiatric Exam Present: unable to assess Results Labs on day of discharge: Labs from last 24 hours 03/26/20 03/26/20 03/25/20 05:50 05:50 08:40 WBC 17.0 H D RBC 4.24 L Hgb 14.3 Hct 41.3 L MCV 97.6 H MCH 33.7 H MCHC 34.6 RDW 14.1 Plt Count 176 D MPV 10.5 H Neut % (Auto) 93.1 H Lymph % (Auto) 3.6 L Ball[place] % (Auto) 2.9 Eos % (Auto) 0.1 Baso % (Auto) 0.4 Neut # (Auto) 15.9 H Lymph # (Auto) 0.6 L [place] # (Auto) 0.5 Eos # (Auto) 0.0 Baso # (Auto) 0.1 Sodium 162 H* 159 H* Potassium 3.6 4.1 Chloride 121 H 117 H Carbon Dioxide 22 21 L Anion Gap 22.6 H 25.1 H BUN 151 H* 134 H* D Creatinine 7.50 H 7.60 H D Estimated Creat Clear 9 9 Estimated GFR 7 L* 7 L* Est GFR ( Amer) 8 L* 8 L* D Glucose 144 H 144 H Calcium 8.3 L 8.1 L Total Bilirubin 1.4 H AST 57 D ALT 17 Alkaline Phosphatase 112 Total Protein 7.0 Albumin 3.5 D Globulin 3.5 H Albumin/Globulin Ratio 1.0 L Preliminary micro results at discharge 03/24/20 02:20 Blood Culture - Preliminary Blood NO GROWTH AFTER 48 HOURS 03/24/20 02:20 Blood Culture - Preliminary Blood NO GROWTH AFTER 48 HOURS - Additional Comments Rounded with Dr. Emanuel, all orders per Dr. Emanuel: 1. We will discharge back to [facility] with hospice DS: Diagnosis - Discharge Diagnosis (1) COVID-19 virus detected Status: Acute (2) Respiratory failure with hypoxia Status: Acute (3) ALFREDO (acute kidney injury) Status: Acute (4) Diastolic dysfunction Status: Chronic (5) Aortic stenosis Status: Chronic (6) Dementia Status: Chronic
[2020-03-26 09:11] LABS: Lymphocytes % 13 % (10-50); Monocytes % 2 % (2-9); Neutrophils % 85 % (42-76); Platelet Estimate Normal; RBC Morphology Normal; Total Cells Counted 100
== END 2020-03-26 12:30 | DRG 177 ==
LOC: ER 03:37 → 2ND 04:18
PROVIDERS: Nurse Practitioner Family; Admitting Provider Emergency Medicine; Emergency Provider Emergency Medicine; PCP Emergency Medicine; Visit Provider Emergency Medicine
DX: U07.1 COVID-19 (principal); J96.21 Acute and chronic respiratory failure with hypoxia; I50.30 Unspecified diastolic (congestive) heart failure; N17.9 Acute kidney failure, unspecified; I25.10 Atherosclerotic heart disease of native coronary artery without angina pectoris; I25.2 Old myocardial infarction; I35.0 Nonrheumatic aortic (valve) stenosis; G30.1 Alzheimer's disease with late onset; F02.80 Dementia in other diseases classified elsewhere, unspecified severity, without behavioral disturbance, psychotic disturbance, mood disturbance, and anxiety
CPT/HCPCS: 36415; 71045; 80048; 80053; 80076; 81001; 82803; 83605; 83735; 83880; 84100; 84484; 85007; 85025; 86328; 87040; 93005; 94760; 94761; 96365; 99285; U0003